=== PATIENT | male | born 1955 | race Caucasian/White ===

== ENCOUNTER 2017-01-14 15:14 | Inpatient (IN) | payer OTHER, MEDICARE ==
[~2017-01-14] VITALS: Ht 175.3 cm; Wt 71.2 kg
[~2017-01-14 15:14] MED LIST: ALDACTONE100 MG PO; CAPOTEN25 MG PO; CYCLOBENZAPRINE10 MG PO; ENULOSE 2020 GM/30 M PO; FUROSEMIDE40 MG PO; HUMALOG100 UNIT/2; HYDROXYZINE HCL10 MG PO; HYDROXYZINE HCL25 MG PO; LANTUS INS100 UNITS/ SC; LEVEMIR 10100 UNITS/ SC; LEVEMIR FLEX100 U/M1 SC; LEVEMIR100 U/ML SC; LEVEMIR100 UNIT/1 SC; METHADONE H5 MG/5 M2 PO; METHADONE H5 MG/5 ML PO; METHADONE10 MG PO; MULTIVITAMIN1 TAB PO; NEURONTIN100 M1 PO; NOVOLOG100 U/ML SC; SPIRONOLACTONE50 MG PO
--- NOTE | 2017-01-14 15:22 | NUR ---
TRIAGE: 61 Y/O MALE PRESENTS WITH MANY COMPLAINTS: RIGHT LOWER ABDOMINAL PAIN - RECENT ADMISSION TO [facility]; LAST BOWEL MOVEMENT UNKNOWN. PATIENT'S IRATE ABOUT RECENT CARE FROM [facility]. HAS DISCHARGE INSTRUCTIONS IN HAND. PATIENT'S CONTINUES WITH AGGRESSIVE LANGUAGE IN TRIAGE.
--- NOTE | 2017-01-14 15:31 | ED GI/GU/ABDOMINAL COMPLAINT ---
History of Present Illness General Chief Complaint: General Adult Stated Complaint: PT STOMACH PAIN Source: patient, family, old records Exam Limitations: no limitations Allergies Coded Allergies: acetaminophen (From TYLENOL-CODEINE) (NAUSEA 01/14/17) codeine (From TYLENOL-CODEINE) (NAUSEA 01/14/17) Triage Note: TRIAGE: 61 Y/O MALE PRESENTS WITH MANY COMPLAINTS: RIGHT LOWER ABDOMINAL PAIN - RECENT ADMISSION TO [facility]; LAST BOWEL MOVEMENT UNKNOWN. PATIENT'S IRATE ABOUT RECENT CARE FROM [facility]. HAS DISCHARGE INSTRUCTIONS IN HAND. PATIENT'S CONTINUES WITH AGGRESSIVE LANGUAGE IN TRIAGE. Triage Nurses Notes Reviewed? yes Onset: Gradual Duration: day(s): (4), constant Timing: recent history Quality/Severity: aching, BLOATING Severity Numbers: 7 Location: generalized abdomen, right lower quadrant Radiation: no radiation Activities at Onset: none No Modifying Factors: none Associated Symptoms: LIGHTHEADEDNESS HPI: 61-year-old male with history of cirrhosis hepatitis C diabetes which is followed by an glass silverer and liver specialist presents to ER with his complaining of persistent generalized abdominal distention right lower quadrant aching bloating pain and no normal bowel movements and lightheadedness in the past 4 days. He was recently admitted to [facility] in [place] for hyperkalemia earlier this month and return last week due to similar complaints. The patient states that they found nothing wrong with him and sent him home yesterday he's been using magnesium citrate without improvement he states he is only having small pellet-like bowel movements no black or bloody stools no fever no chills no nausea no vomiting no back pain and sciatica anything specifically for pain. His abdominal surgeries only significant for hernia repair. No dizziness no chest pain or shortness of breath (SALVADOR MOYA) Vital Signs & Intake/Output Vital Signs & Intake/Output Vital Signs Date Time Temp Pulse Resp B/P B/P Pulse O2 O2 Flow FiO2 Mean Ox Delivery Rate 01/16 0617 97.9 59 20 152/80 99 01/15 2241 98.4 66 20 140/70 99 Room Air 01/15 1449 97.4 69 18 140/66 99 01/15 1425 Room Air 01/15 1001 65 118/72 ED Intake and Output 01/16 0000 01/15 1200 Intake Total 925 250 Output Total 1045 800 Balance -120 -550 Intake, IV 525 Intake, Oral 400 250 Number 2 2 Bowel Movements Output, Urine 1045 800 Patient 157 lb Weight Reconcile Medications Cyclobenzaprine HCl 10 MG TABLET 1 TAB PO BID PRN RLS (Reported) Doxazosin Mesylate 8 MG TABLET 1 TAB PO QPM PROSTATE (Reported) Fluticasone Propionate 50 MCG/ACTUATION SPRAY.SUSP 2 SPRAY NASB PRN ALLERGIES (Reported) Furosemide (Lasix) 20 MG TABLET 1 TAB PO QAM DIURETIC (Reported) Hydroxyzine HCl 10 MG TABLET 1 TAB PO Q8P PRN ITCHING (Reported) Insulin Detemir (Levemir) 100 UNIT/ML VIAL 14 UNITS SC BID DM (Reported) Insulin Lispro (Humalog) 100 UNIT/ML VIAL DM (Reported) Lactulose 10 GRAM/15 ML SOLUTION 30 ML PO TID LIVER CIRRHOSIS (Reported) Lisinopril 10 MG TABLET 1 TAB PO DAILY BP (Reported) Magnesium Oxide (Magnesium) 400 MG CAPSULE 1 CAP PO BID SUPPLEMENT (Reported) Methadone HCl 10 MG/ML ORAL.CONC 70 MG PO DAILY MENTAL HEALTH (Reported) Mirabegron (Myrbetriq) 50 MG TAB.ER.24H 1 TAB PO DAILY BLADDER (Reported) Nitrofurantoin Monohyd/M-Cryst (Nitrofurantoin Bethel-Mcr 100 MG) 100 MG CAPSULE 1 CAP PO DAILY ANTIBIOTIC (Reported) Psyllium Husk (Metamucil) (Unknown Strength) CAPSULE (Unknown Dose) PO BID GI (Reported) Sennosides/Docusate Sodium (Senokot-S Tablet) 8.6 MG-50 MG TABLET 1 TAB PO TID GI (Reported) Spironolactone 100 MG TABLET 1 TAB PO BID BP (Reported) Trazodone HCl 100 MG TABLET 1 TAB PO QPM SLEEP (Reported) (HANNAH COX,IMGE) Past History Travel History Traveled to [place] past 21 day No Medical History Any Pertinent Medical History? see below for history Neurological: restless leg syndrome EENT: NONE Cardiovascular: hypertension, PVD Respiratory: NONE Gastrointestinal: NONE Hepatic: cirrhosis, hepatitis C Renal: NONE Musculoskeletal: NONE Psychiatric: NONE Endocrine: diabetes Surgical History Surgical History: hernia repair-inguinal, LUMBAR DISCECTOMY Psychosocial History Who do you live with Spouse What is your primary language Telugu Tobacco Use: Current Daily Use Daily Tobacco Use Amount/Type: => 5 Cigarettes daily ETOH Use: denies use Illicit Drug Use: denies illicit drug use Family History Hx Contributory? No (SALVADOR MOYA) Review of Systems Review of Systems Constitutional: Reports: see HPI. All Other Systems: Reviewed and Negative Comments Review of systems: See HPI, All other systems negative. Constitutional, no chills no fever, no malaise HEENT: No visual changes no sore throat no congestion, Cardiovascular: No chest pain , no palpitation Skin: no rashes, no change in skin Respiratory: No dyspnea no cough no sputum no hemoptysis GI: No nausea no vomiting, no diarrhea, no bloating/constipation : No dysuria No hematuria, no frequency, Muscle skeletal: No joint pain, no joint swelling, no back pain, no neck pain, Neurologic: no headache Psych: No stress no depression,. Heme/endocrine: No bruising no bleeding Immunology: No lymphadenopathy (SALVADOR MOYA) Physical Exam Physical Exam General Appearance: well developed/nourished, no apparent distress, alert, awake Gastrointestinal: normal bowel sounds, soft Comments: Well-developed well-nourished person in no acute distress HEENT: Normal EENT exam; PERRL, EOMI,. HEAD is atraumatic. moist mucous membranes. Neck: Supple, normal range of motion Back: Nontender, no CVA tenderness. Full range of motion Cardiovascular: Regular rate and rhythms no murmurs rubs or gallops, normal JVP Respiratory: No respiratory distress. Patient speaking in full complete sentences. Breath sounds clear to auscultation bilaterally: NO W/R/R Abdomen: Soft, nontender distended, no appreciable organomegaly. Normal bowel sounds. No rebound/guarding, No appreciable enlargement of the abdominal aorta, No ascites. Rectal: Nontender. No impaction Heme negative stool. No mass/hemorrhoid, no fissure. Extremity: No edema, full range of motion of extremities Neuro: Alert oriented x3, motor sensory normal,There were no obvious focal neurologic abnormalities. Skin: No appreciable rash on exposed skin, skin is warm and dry. Psych: Mood and affect is normal, memory and judgment is normal. Core Measures ACS in differential dx? No Severe Sepsis Present: No Septic Shock Present: No (SALVADOR MOYA) Progress Differential Diagnosis: AAA, appendicitis, biliary colic, bowel obstruction, colon cancer, cholecystitis, diverticulitis, hepatitis, hernia, ischemic bowel, inflamm bowel dis, pancreatitis, peptic ulcer, PUD/GERD, perforated viscous, pyelonephritis, SBO, MALIGNANCY, CIRRHOSIS, SBP Diagnostic Imaging: Viewed by Me: CT Scan. Discussed w/RAD: CT Scan. Radiology Impression: PATIENT: BELA GR PRESENT AGE: 61 PATIENT ACCOUNT NO: [id number] : 53 LOCATION: [facility] ORDERING PHYSICIAN: SALVADOR MONDRAGON SERVICE DATE: 01/14/17 EXAM TYPE: CAT - CT ABD & PELVIS W/O IV CONTRAS EXAMINATION: CT ABDOMEN AND PELVIS WITHOUT CONTRAST CLINICAL INFORMATION: Constipation and right lower quadrant pain. COMPARISON: None TECHNIQUE: Multidetector volumetric imaging was performed from the superior aspect of the liver through the pubic symphysis. Sagittal and coronal reformatted images were obtained on the technologist's workstation. DLP: 2 a 2.57 mGy-cm FINDINGS: LUNG BASES: There is mild left base atelectasis versus infiltrate with air bronchograms, and very mild medial right base linear atelectasis is seen. A small right pleural effusion is seen LIVER, GALLBLADDER, AND BILIARY TREE: The liver is normal in size, shape, and attenuation. No focal hepatic lesion or biliary ductal dilatation is present. There is mild free fluid deep to the left hepatic lobe. There are multiple layering gallstones, without gallbladder wall thickening or obvious pericholecystic inflammatory change. PANCREAS: Unremarkable. SPLEEN: There is splenomegaly, with a longitudinal span in coronal plane of 15.6 cm (602:75) ADRENAL GLANDS: Unremarkable. KIDNEYS AND URETERS: The kidneys are normal in size, shape, and attenuation. No hydronephrosis, hydroureter, or calculi seen. No perinephric stranding. BLADDER: Unremarkable. GASTROINTESTINAL TRACT: There is marked constipation, with copious gas and stool present within the colon. There is no pathologic dilatation of small bowel loops. The vermiform appendix is faintly seen and appears normal, without appendicitis (3:391). There is mild free fluid in the mid pelvis interposed between the small bowel loops and the anterior bladder wall. ABDOMINAL WALL: There is subcutaneous fat stranding in the anterior abdominal wall bilaterally (2:59), suggesting possible edematous change or injection hematomas. LYMPH NODES: There is a mildly enlarged para-aortic lymph node with short axis diameter of 1.3 cm (2:45). There are further shotty, nonpathologically enlarged para-aortic, bilateral iliac and inguinal lymph nodes. VASCULAR: There is moderate aortoiliac atherosclerotic change. No abdominal aortic aneurysm is seen. PELVIC VISCERA: The prostate and seminal vesicles are unremarkable. There are vas deferens calcifications, which can be associated with diabetes mellitus. OSSEOUS STRUCTURES: There is marked degenerative disc disease with vacuum phenomenon at L5-S1. No acute or aggressive osseous abnormality is seen. IMPRESSION: 1. There is marked constipation. No teodoro bowel obstruction is seen. There is no appendicitis or diverticulitis. No free intraperitoneal air or abscess is seen. 2. There is cholelithiasis, without CT finding to suggest cholecystitis. 3. There is mild free fluid in the lower pelvis and upper abdomen. 4. A small right pleural effusion is seen, and there is mild medial right base linear atelectasis. There is mild left base atelectasis versus infiltrate, with air bronchograms. 5. There is splenomegaly. 6. There is degenerative disc disease at L5-S1. DICTATED BY: LEE ANN MENA MD DATE/TIME DICTATED:01/14/171633 DIRECTOR HEMATOLOGY:AMILCAR DATE/TIME TRANSCRIBED:01/14/171633 CONFIDENTIAL, DO NOT COPY WITHOUT APPROPRIATE AUTHORIZATION. <Electronically signed in Other Vendor System> SIGNED BY: LEE ANN MENA MD 01/14/17 7522 Initial ED EKG: normal intervals, normal p-waves, normal QRS complex, normal sinus rhythm (70) Prior EKG: unchanged (KIAH MONDRAGON,SALVADOR) Plan of Care: Orders Procedure Date/time Status HEPATIC FUNCTION PANEL 01/16 06 Complete CBC WITHOUT DIFFERENTIAL 01/16 06 Active BASIC ELECTROLYTES PLUS BUN&CR 01/16 06 Complete RT: Evaluation 01/15 1435 Active MAGNESIUM 01/15 0703 Complete THERAPIST ORDERS 01/15 UNK Complete Lab Add-on Test 01/15 UNK Active MISSING MEDICATION FORM 01/15 UNK Active Current Medications Sig/Quinton Start time Last Medication Dose Stop Time Status Admin Magnesium Oxide 400 MG DAILY 01/16 1000 AC (Mag-Ox) Doxazosin Mesylate 8 MG QPM 01/15 2200 AC 01/15 (Cardura) 2222 Docusate Sodium 100 MG DAILY 01/15 1000 AC (Colace) Furosemide 20 MG QAM 01/15 1000 AC 01/15 (Lasix) 1002 Lactulose 10 GM TID 01/15 1000 AC (Enulose 20GM/30ML) Lisinopril 10 MG DAILY 01/15 1000 AC 01/15 (Prinivil) 1001 Magnesium Oxide 400 MG BID 01/15 1000 AC 01/15 (Mag-Ox) 2222 Mirabegron 50 MG DAILY 01/15 1000 AC 01/15 (Myrbetriq) 1002 Polyethylene Glycol 17 GM DAILY 01/15 1000 AC (Miralax) Senna/Docusate Sodium 1 TAB TID 01/15 1000 AC (Senokot S) Spironolactone 100 MG BID 01/15 1000 AC 01/15 (Aldactone) 2223 Insulin Aspart 0 TIDAC 01/15 0800 AC (NovoLOG) Cyclobenzaprine HCl 10 MG BID PRN 01/14 2215 AC (Flexeril 10MG Tab) Hydroxyzine HCl 10 MG DAILY NEEDED PRN 01/14 2215 AC (Atarax) Trazodone HCl 100 MG QPM 01/14 2215 AC 01/15 (Desyrel) 2222 Insulin Detemir 14 UNITS BID 01/14 2203 AC 01/14 (Levemir) 2323 Laboratory Tests 01/16/17 0710: Anion Gap 8, Estimated GFR > 60, BUN/Creatinine Ratio 15.0, Total Bilirubin 0.7, Direct Bilirubin 0.4, AST 26, ALT 40, Alkaline Phosphatase 62, Total Protein 6.8 , Albumin 3.4 L, CBC w Diff Pending, WBC Pending, RBC Pending, Hgb Pending, Hct Pending, MCV Pending, MCH Pending, RDW Pending, Plt Count Pending, MPV Pending, PUBS MCHC Pending Labs ordered old records reviewed patient's white blood cell count is chronically low however hemoglobin and platelet count today is new. Discussed with patient need all his results to date pending CAT scan Patient and his have no known history of anemia thrombocytopenia leukopenia patient denies dizziness lightheadedness shortness of breath guaiac is negative case was discussed with Dr. Brewer discussed with him at leave his CAT scan aggressive lab work sodium is baseline CASE D/W DR BREWER AGREES WITH PLAN D/W DR LEVY WILL PLACE IN OBS (SALVADOR MOYA) Departure Departure Time of Disposition: 1853 Disposition: HOME OR SELF CARE Clinical Impression Primary Impression: Symptomatic anemia Secondary Impressions: Abdominal pain, Cirrhosis, Constipation, Pleural effusion , Splenomegaly, Thrombocytopenia Observation Note Spoke With: DA LEVY MD Physician Advisor Notified: GILBERTO DUARTE MD Patient In: Non-ED OBS Care Area Rationale for Observation: My rational for observation is as follows [heme consult, trend labs, transfuse 2 units, premature discharge would be medically harmful, pt is orthostatic, no documented history of anemia in the past. (SALVADOR MOYA) PA/LEAF SIZE PICKER Co-Sign Statement Statement: ED Attending supervision documentation- [] I saw and evaluated the patient. I have also reviewed all the pertinent lab results and diagnostic results. I agree with the findings and the plan of care as documented in the PA's/LEAF SIZE PICKER's documentation. [X] I have reviewed the ED Record and agree with the PA's/LEAF SIZE PICKER's documentation. [] Additions or exceptions (if any) to the PAs/LEAF SIZE PICKER's note and plan are summarized below: [] (JUSTINE COX,MATTHEW Beth) Departure Condition: Stable Referrals: DEMARCO COX,MICHELLE Sewell (PCP/Family) Departure Forms: Customer Survey General Discharge Information (BERTHA YOUNG MD) Addendum Addendum I went into this note by error. Bertha Young MD PGY-1 Resident (BERTHA YOUNG MD) Addendum I went into this note by error. Bertha Young MD PGY-1 Resident (BERTHA YOUNG MD) Physician Advisor Notified: GILBERTO DUARTE MD Patient In: Non-ED OBS Care Area Rationale for Observation: My rational for observation is as follows [heme consult, trend labs, transfuse 2 units, premature discharge would be medically harmful, pt is orthostatic, no documented history of anemia in the past. (SALVADOR MOYA) PA/LEAF SIZE PICKER Co-Sign Statement Statement: ED Attending supervision documentation- [] I saw and evaluated the patient. I have also reviewed all the pertinent lab results and diagnostic results. I agree with the findings and the plan of care as documented in the PA's/LEAF SIZE PICKER's documentation. [X] I have reviewed the ED Record and agree with the PA's/LEAF SIZE PICKER's documentation. [] Additions or exceptions (if any) to the PAs/LEAF SIZE PICKER's note and plan are summarized below: [] (JUSTINE COX,MATTHEW Beth) Departure Clinical Impression Primary Impression: Symptomatic anemia Secondary Impressions: Abdominal pain, Constipation (HANNAH COX,IMGE)
--- NOTE | 2017-01-14 15:32 | NUR ---
AMBULATORY TO ROOM 3, CHANGED INTO [facility] FORTUNE AT BEDSIDE FOR EVAL
[2017-01-14 16:25] LABS: ABSOLUTE BASOPHIL COUNT 0 /CUMM (0.0-0.2); ABSOLUTE EOSINOPHIL COUNT 0.1 /CUMM (0.0-0.7); ABSOLUTE GRANULOCYTE CT 3.7 /CUMM (1.4-6.5); ABSOLUTE LYMPH COUNT 0.4 /CUMM (1.2-3.4); ABSOLUTE MONOCYTE COUNT 0.4 /CUMM (0.10-0.60); BASOPHIL % 0.2 % (0.0-2.0); EOSINOPHIL % 1.6 % (0-5); GRANULOCYTE % 81.1 % (42.2-75.2); HEMATOCRIT 23.6 % (42-52); MEAN CORPUSCULAR HGB 25.3 PG (27.0-31.0); MEAN CORPUSCULAR HGB CONC 32.5 G/DL (33.0-37.0); MEAN CORPUSCULAR VOLUME 77.7 FL (80.0-94.0); MEAN PLATELET VOLUME 7.9 FL (7.4-10.4); PLATELET COUNT 98 /CUMM (130-400); RBC DISTRIBUTION WIDTH 15.7 % (11.5-14.5); RED BLOOD CELL CT 3.04 /CUMM (4.70-6.10); WHITE BLOOD CELL COUNT 4.5 /CUMM (4.8-10.8)
--- NOTE | 2017-01-14 16:25 | NUR ---
TO CT ON STRETCHER, RETURNS AT THIS TIME.
--- NOTE | 2017-01-14 16:59 | CT SCAN REPORT ---
EXAMINATION: CT ABDOMEN AND PELVIS WITHOUT CONTRAST CLINICAL INFORMATION: Constipation and right lower quadrant pain. COMPARISON: None TECHNIQUE: Multidetector volumetric imaging was performed from the superior aspect of the liver through the pubic symphysis. Sagittal and coronal reformatted images were obtained on the technologist's workstation. DLP: 2 a 2.57 mGy-cm FINDINGS: LUNG BASES: There is mild left base atelectasis versus infiltrate with air bronchograms, and very mild medial right base linear atelectasis is seen. A small right pleural effusion is seen LIVER, GALLBLADDER, AND BILIARY TREE: The liver is normal in size, shape, and attenuation. No focal hepatic lesion or biliary ductal dilatation is present. There is mild free fluid deep to the left hepatic lobe. There are multiple layering gallstones, without gallbladder wall thickening or obvious pericholecystic inflammatory change. PANCREAS: Unremarkable. SPLEEN: There is splenomegaly, with a longitudinal span in coronal plane of 15.6 cm (602:75) ADRENAL GLANDS: Unremarkable. KIDNEYS AND URETERS: The kidneys are normal in size, shape, and attenuation. No hydronephrosis, hydroureter, or calculi seen. No perinephric stranding. BLADDER: Unremarkable. GASTROINTESTINAL TRACT: There is marked constipation, with copious gas and stool present within the colon. There is no pathologic dilatation of small bowel loops. The vermiform appendix is faintly seen and appears normal, without appendicitis (3:391). There is mild free fluid in the mid pelvis interposed between the small bowel loops and the anterior bladder wall. ABDOMINAL WALL: There is subcutaneous fat stranding in the anterior abdominal wall bilaterally (2:59), suggesting possible edematous change or injection hematomas. LYMPH NODES: There is a mildly enlarged para-aortic lymph node with short axis diameter of 1.3 cm (2:45). There are further shotty, nonpathologically enlarged para-aortic, bilateral iliac and inguinal lymph nodes. VASCULAR: There is moderate aortoiliac atherosclerotic change. No abdominal aortic aneurysm is seen. PELVIC VISCERA: The prostate and seminal vesicles are unremarkable. There are vas deferens calcifications, which can be associated with diabetes mellitus. OSSEOUS STRUCTURES: There is marked degenerative disc disease with vacuum phenomenon at L5-S1. No acute or aggressive osseous abnormality is seen. IMPRESSION: 1. There is marked constipation. No teodoro bowel obstruction is seen. There is no appendicitis or diverticulitis. No free intraperitoneal air or abscess is seen. 2. There is cholelithiasis, without CT finding to suggest cholecystitis. 3. There is mild free fluid in the lower pelvis and upper abdomen. 4. A small right pleural effusion is seen, and there is mild medial right base linear atelectasis. There is mild left base atelectasis versus infiltrate, with air bronchograms. 5. There is splenomegaly. 6. There is degenerative disc disease at L5-S1.
--- NOTE | 2017-01-14 17:09 | NUR ---
PA AT BEDSIDE TO DISCUSS RESULTS/PLAN
[2017-01-14] MEDS ORDERED: NITROFURANTOIN100 M6 PO (17:22)
[2017-01-14] MEDS ORDERED: LEVEMIR100 UNIT/1 SC (17:22)
[2017-01-14] MEDS ORDERED: HYDROXYZINE HCL10 M1 PO (17:23)
[2017-01-14] MEDS ORDERED: SPIRONOLACTONE100 M1 PO (17:23)
[2017-01-14] MEDS ORDERED: HUMALOG100 UNIT/2 SC (17:23)
[2017-01-14] MEDS ORDERED: DOXAZOSIN MESYLA8 M1 PO (17:23)
[2017-01-14] MEDS ORDERED: LACTULOSE10 GM/152 PO (17:25)
[2017-01-14] MEDS ORDERED: TRAZODONE HCL100 M1 PO (17:25)
[2017-01-14] MEDS ORDERED: LISINOPRIL10 M1 PO (17:27)
[2017-01-14] MEDS ORDERED: FLUTICASONE PRO16 GM NASB (17:27)
[2017-01-14] MEDS ORDERED: METHADONE10 MG/1 M2 PO (17:27)
[2017-01-14] MEDS ORDERED: FUROSEMIDE40 M1 PO (17:27)
[2017-01-14] MEDS ORDERED: MYRBETRIQ50 M1 PO (17:28)
[2017-01-14 18:08] LABS: PT 12.9 SEC (9.4-12.5); PTT 31 SEC (25-37)
--- NOTE | 2017-01-14 18:23 | NUR ---
LAB REQUESTING ABORH CONFIRMATION TUBE ROSEY AWARE
--- NOTE | 2017-01-14 18:23 | NUR ---
URINE TRIO SENT.
[2017-01-14] MEDS ORDERED: CYCLOBENZAPRINE10 M1 PO (19:01)
[2017-01-14] MEDS ORDERED: METAMUCIL0.4 GM PO (19:02)
[2017-01-14] MEDS ORDERED: MAGNESIUM400 M1 PO (19:03)
[2017-01-14] MEDS ORDERED: LASIX20 M1 PO (19:03)
[2017-01-14] MEDS ORDERED: SENOKOT-S TABL1 EACH PO (19:04)
--- NOTE | 2017-01-14 20:09 | History & Physical ---
[facility] [place] 2009: General Information and HPI MD Statement: I have seen and personally examined BELA CEDILLO and documented this H&P. The patient is a 61 year old M who presented with a patient stated chief complaint of constipation. Source of Information: patient, old records Exam Limitations: no limitations History of Present Illness: Mr. Cedillo is a 61 y/o M with PMHx of HCV cirrhosis, PVD and insulin- dependent T2DM who presents with constipation. In November of this year, patient presented to [facility] with constipation and right-sided abdominal distention and was subsequently hospitalized. He is unable to recall the details of the hospitalization but reports that an endoscopy and colonoscopy were performed which were unrevealing. He states that his symptoms have persisted since being discharged. For the past two weeks, his stools have been pellet-like and for the past six days, he has not had a bowel movement. He endorses abdominal and bloating but denies melena, hematemesis, bloody stool or jaundice. Patient has weaknes and decreased exercise tolerance at baseline since his spinal fusion surgery in April 2016 but denies chest pain, shortness of breath , lightheadedness, or palpitations. Patient reports that he was diagnosed with HCV in 1997, which he attributes to IV drug use. The last time he used illicit drugs was 35 years ago. He never received treatment for HCV. Allergies/Medications Allergies: Coded Allergies: acetaminophen (From TYLENOL-CODEINE) (NAUSEA 01/14/17) codeine (From TYLENOL-CODEINE) (NAUSEA 01/14/17) Home Med list Cyclobenzaprine HCl 10 MG TABLET 1 TAB PO BID PRN RLS (Reported) Doxazosin Mesylate 8 MG TABLET 1 TAB PO QPM PROSTATE (Reported) Fluticasone Propionate 50 MCG/ACTUATION SPRAY.SUSP 2 SPRAY NASB PRN ALLERGIES (Reported) Furosemide (Lasix) 20 MG TABLET 1 TAB PO QAM DIURETIC (Reported) Hydroxyzine HCl 10 MG TABLET 1 TAB PO PRN ITCHING (Reported) Insulin Detemir (Levemir) 100 UNIT/ML VIAL 14 UNITS SC BID DM (Reported) Insulin Lispro (Humalog) 100 UNIT/ML VIAL DM (Reported) Lactulose 10 GRAM/15 ML SOLUTION 30 ML PO TID GI (Reported) Lisinopril 10 MG TABLET 1 TAB PO DAILY BP (Reported) Magnesium Oxide (Magnesium) 400 MG CAPSULE 1 CAP PO BID SUPPLEMENT (Reported) Methadone HCl 10 MG/ML ORAL.CONC 70 MG PO DAILY MENTAL HEALTH (Reported) Mirabegron (Myrbetriq) 50 MG TAB.ER.24H 1 TAB PO DAILY BLADDER (Reported) Nitrofurantoin Monohyd/M-Cryst (Nitrofurantoin Johnston-Mcr 100 MG) 100 MG CAPSULE 1 CAP PO DAILY ANTIBIOTIC (Reported) Psyllium Husk (Metamucil) (Unknown Strength) CAPSULE (Unknown Dose) PO BID GI (Reported) Sennosides/Docusate Sodium (Senokot-S Tablet) 8.6 MG-50 MG TABLET 1 TAB PO TID GI (Reported) Spironolactone 100 MG TABLET 1 TAB PO BID BP (Reported) Trazodone HCl 100 MG TABLET 1 TAB PO QPM SLEEP (Reported) Observation Initial Note - I have personally examined BELA CEDILLO on 01/14/17 at 2309. The disposition of BELA CEDILLO is uncertain at this time and before a determination can be made, he requires a period of observation for the following reasons [] Past History Travel History Traveled to [place] past 21 day No Medical History Neurological: restless leg syndrome EENT: NONE Cardiovascular: hypertension, PVD Respiratory: NONE Gastrointestinal: NONE Hepatic: cirrhosis, hepatitis C Renal: NONE Musculoskeletal: NONE Psychiatric: NONE Endocrine: diabetes Surgical History Surgical History: hernia repair-inguinal, LUMBAR DISCECTOMY Past Family/Social History Psychosocial History Where do you live? Home Who Do You Live With? spouse Services at Home: None Primary Language: Kuwaiti Smoking Status: Current Everyday Smoker (Smokes 1/2 PPD) ETOH Use: denies use Illicit Drug Use: denies illicit drug use (hx of IVDU - quit 35 years ago) Functional Ability ADLs Independent: dressing, eating, toileting, bathing. Ambulation: cane IADLs Independent: shopping, housework, finances, food prep, telephone, transportation , medication admin. Employment History Employment Disability Review of Systems Review of Systems Constitutional: Reports: weakness. EENTM: Reports: no symptoms. Exam & Diagnostic Data Last 24 Hrs of Vital Signs/I&O Vital Signs Date Time Temp Pulse Resp B/P B/P Pulse O2 O2 Flow FiO2 Mean Ox Delivery Rate 06/17 2137 97.3 74 20 148/84 97 Room Air 01/14 2001 96.3 73 18 150/77 100 Room Air 01/14 1758 96.9 67 18 178/92 99 01/14 1625 99 01/14 1519 98.1 80 18 123/74 97 Room Air Room Air Intake & Output 01/14 1600 01/14 0800 01/14 0000 Intake Total Output Total Balance Patient 71.214 kg Weight Weight Reported by Patient Measurement Method Physical Exam General Appearance Alert, Oriented X3, No Acute Distress Skin No Rashes Sepsis Skin Exam (color): Pale HEENT Atraumatic, Mucous Membr. moist/pink, Conjunctival Pallor Neck Supple Cardiovascular Regular Rate, Normal S1, Normal S2 Lungs Clear to Auscultation Abdomen Soft, No Tenderness, Positive Bowel Sounds Extremities No Clubbing, No Cyanosis, Bilateral Lower Extremities with 2+ Edema , Skin Changes on Bilateral Lower Extremiteis Consistent with Severe Chronic Venous Stasis Last 24 Hrs of Labs/Jeffy: Laboratory Tests 01/14/17 1846: Lactic Acid Cancelled 01/14/17 1818: Urine Opiates Screen < 100.00, Methadone Screen > 735 H, Barbiturate Screen < 60, Ur Phencyclidine Scrn < 6.00, Amphetamines Screen < 100, U Benzodiazepines Scrn < 85, Urine Cocaine Screen < 50, Urine Cannabis Screen < 5.00, Urine Color YEL, Urine Clarity CLEAR, Urine pH 6.0, Ur Specific Hobson 1.010, Urine Protein NEG, Urine Ketones NEG, Urine Nitrite NEG, Urine Bilirubin NEG, Urine Urobilinogen 0.2, Ur Leukocyte Esterase NEG, Ur Microscopic EXAM NOT REQUIRED, Urine Hemoglobin NEG, Urine Glucose NEG 01/14/17 1746: PT 12.9 H, INR 1.23 H, APTT 31 01/14/17 1606: Anion Gap 11, Estimated GFR > 60, BUN/Creatinine Ratio 12.7, Glucose 89, Lactic Acid 1.6, Calcium 9.1, Iron 19 L, TIBC 348, Ferritin 47.1, Total Bilirubin 0.7, AST 26, ALT 44, Alkaline Phosphatase 62, Total Protein 6.7, Albumin 3.5, Globulin 3.2, Albumin/Globulin Ratio 1.1, CBC w Diff NO MAN DIFF REQ, RBC 3.04 L, MCV 77.7 L, MCH 25.3 L, RDW 15.7 H, MPV 7.9, Gran % 81.1 H, Lymphocytes % 8.8 L, Monocytes % 8.3, Eosinophils % 1.6, Basophils % 0.2, Absolute Granulocytes 3.7, Absolute Lymphocytes 0.4 L, Absolute Monocytes 0.4, Absolute Eosinophils 0.1, Absolute Basophils 0, PUBS MCHC 32.5 L, Retic Count 3.52 H Diagnostic Data EKG Results Normal sinus rhythm HR 69 QTc [address] ABDOMEN/PELVIS: 1. There is marked constipation. No teodoro bowel obstruction is seen. There is no appendicitis or diverticulitis. No free intraperitoneal air or abscess is seen. 2. There is cholelithiasis, without CT finding to suggest cholecystitis. 3. There is mild free fluid in the lower pelvis and upper abdomen. 4. A small right pleural effusion is seen, and there is mild medial right base linear atelectasis. There is mild left base atelectasis versus infiltrate, with air bronchograms. 5. There is splenomegaly. 6. There is degenerative disc disease at L5-S1. Core Measures/Miscellaneous Acute Coronary Syndrome ACS Diagnosis: No Cerebrovascular Accident CVA/TIA Diagnosis: No Congestive Heart Failure CHF Diagnosis: No VTE (View Protocol) VTE Risk Factors: Acute medical illness, Age > 40, Smoking No [facility] VTE prophylaxis d/t: No contraindications No VTE Pharm Prophylaxis d/t: Platelets below ref range VTE Diagnosis: No VTE Type: NONE VTE Confirmed by (Test): NONE Sepsis (View Protocol) Severe Sepsis Present: No Septic Shock Septic Shock Present: No Miscellaneous Documentation Attending [facility] Primary Care Physician: MICHELLE PAL MD Patient sees these Specialists Public Works Technician Cain Dick MD Marine Fitter Tejas Miller MD Shot Fireman at [facility] Level of Patient Care: General Medicine SALVADOR KOHLI 01/14/17 2009: Resident Review Statement Resident Statement: examined this patient, discussed with post graduate internship, agreed with post graduate internship, reviewed images Other Findings: This is a 61 years old gentleman with past medical history of hypertension, peripheral vascular disease, liver cirrhosis with hepatitis C diagnosed since 1997, diabetes mellitus, restless leg syndrome status post cervical spinal fusion in March 2016 with swallowing problems postprocedure who is presenting with constipation. Patient is reporting that for the past 6 days have not been able to have a bowel movement and is experiencing abdominal bloating and sense of fullness. He was admitted at [place] in November for the same problem received enema and also had a colonoscopy which cleared for any mechanical obstruction. He has recently also had an upper endoscopy which was negative. Before the start of constipation he used to had bowel motion almost every day. He denies passing stools which had occurred more than usual or observing blood in stool. The patient denies any dizziness lightheadedness palpitation or lethargy. He has no chest pain palpitation or shortness of breath. He just has vague abdominal discomfort but denies any overt abdominal pain nausea or vomiting. He has no dysuria or change in urine frequency. Patient gets his care primarily at [facility] he follows with a apricot washer and an management recruiter. It baseline he uses a cane and reports that he is independent with his ADLs and I ADLs to he has been slower more than usual. Recently the patient has noted to be bruising more than usual Vital signs on arrival febrile 98.1 heart rate of 80 respiration of 18 blood pressure 123/74 saturating 97% on room air Physical examination: Patient appears more older than his age, wasted, multiple bruises on bilateral upper limbs and on the abdominal wall, not in any acute distress seated comfortably on the bed very cooperative. HEENT: Dry mucous membranes no distended neck vessels healed scar on the back of the neck from the neck and vertebral fusion Abdomen: Globally distended, no tenderness, slightly increased spleen palpable below the right costal margin, no hepatomegaly, fluid thrill is negative, normal bowel sounds. Extremities: Venous stasis changes, +1 pitting edema, weak peripheral pulses, no cyanosis, no clubbing Chest: Clear lungs bilaterally Heart: RRR, normal S1-S2 there is a systolic murmur more pronounced in the aortic area Labs: H&H H&H 7.7 and 23.7, WBC 4.5, platelets 98, MCV 77.7, Low retic 3.5 to, reticulocyte production index 0.99, INR 1.23, sodium 129, methadone 735 CT abdomen: Shows evidence of constipation and splenomegaly EKG: Normal sinus resume regular normal axis no ST-T wave changes QTC 459 Assessment and plan 61 years old gentleman with extensive past medical history hypertension peripheral vascular disease liver cirrhosis, hepatitis C, diabetes mellitus who is presenting with one-week history of constipation with previous admission for constipation at [facility] and for workup negative for malignancy or mechanical obstruction. On presentation patient found to be anemic hemoglobin of 7.7 and hematocrit of 23.6 with hypocellularity of all blood cell lines. Patient denies any anemia associated symptoms. Chronic anemia Constipation Liver cirrhosis Diabetes mellitus Hypertension Borderline hyponatremia Admit the patient to general medicine floor Patient received 1 unit of PRBC in the ER, recheck CBC a.m. Ground mechanical diet Further workup for anemia initial shows low iron, normal TIBC and ferritin will check folate and B12 Dulcolax suppository For bowel regimen with senna and MiraLAX and Colace Please get medical records from [facility] for previous treatments Patient is full code ALPS the 4 DVT prophylaxis Pain pathway MILDRED [facility], [facility] 01/14/17 3163: Attending MD Review Statement Attending Statement Attending MD Statement: examined this patient, discuss w/resident/PA/SOLDERING TECHNICIAN, agreed w/resident/PA/SOLDERING TECHNICIAN
--- NOTE | 2017-01-14 20:35 | NUR ---
PRBCS INFUSING WITH NO SIGNS OF REACTION. HOUSE STAFF EVAL IN PROGRESS.
--- NOTE | 2017-01-14 20:49 | NUR ---
Emergency Dept UC Admit Note: To be admitted to [facility] by DR LEVY with SYMPTOMATIC ANEMIA as the diagnosis, to [facility]OBSERVATION location. Nursing Final Installer Inspector and admitting notified 01/14/17 at 1927 PT WILL GO TO ROOM 203-1
--- NOTE | 2017-01-14 21:31 | NUR ---
PT EATING BOX LUNCH. REPORT CALLED TO ASAD ON 2NB.
--- NOTE | 2017-01-14 21:42 | NUR ---
TRANSPORT HERE FOR PT
--- NOTE | 2017-01-14 23:15 | History & Physical ---
HANNAH COX,[facility] [place] 01/14/17 2314: General Information and HPI MD Statement: I have seen and personally examined BELA CEDILLO and documented this H&P. The patient is a 61 year old M who presented with a patient stated chief complaint of constipation. Source of Information: patient, old records Exam Limitations: no limitations History of Present Illness: Mr. Cedillo is a 61 y/o M with PMHx of HCV cirrhosis, PVD and insulin- dependent T2DM who presents with constipation. In November of this year, patient presented to [facility] with constipation and right-sided abdominal distention and was subsequently admitted during which time colonoscopy was performed which was negative and patient was given enema with some symptomatic relief. He states that his symptoms have persisted since being discharged. For the past two weeks, his stools have been pellet-like and for the past six days, he has not had a bowel movement. He endorses abdominal and bloating but denies melena, hematemesis, bloody stool or jaundice. Last EGD, one year prior to current presentation, was normal. Patient has dyspnea on exertion and decreased exercise tolerance since his spinal fusion surgery in April 2016 which feels is unchanged from baseline. He denies chest pain, shortness of breath, lightheadedness, or palpitations. He has been experiencing dysphagia as well since that surgery and is currently on a ground diet with thin liquids. Patient reports that he was diagnosed with HCV in 1997, which he attributes to IV drug use. The last time he used illicit drugs was 35 years ago. He never received treatment for HCV. He is currently on a methadone maintenance program and takes stool softeners. Allergies/Medications Allergies: Coded Allergies: acetaminophen (From TYLENOL-CODEINE) (NAUSEA 01/14/17) codeine (From TYLENOL-CODEINE) (NAUSEA 01/14/17) Home Med list Cyclobenzaprine HCl 10 MG TABLET 1 TAB PO BID PRN RLS (Reported) Doxazosin Mesylate 8 MG TABLET 1 TAB PO QPM PROSTATE (Reported) Fluticasone Propionate 50 MCG/ACTUATION SPRAY.SUSP 2 SPRAY NASB PRN ALLERGIES (Reported) Furosemide (Lasix) 20 MG TABLET 1 TAB PO QAM DIURETIC (Reported) Hydroxyzine HCl 10 MG TABLET 1 TAB PO Q8P PRN ITCHING (Reported) Insulin Detemir (Levemir) 100 UNIT/ML VIAL 14 UNITS SC BID DM (Reported) Insulin Lispro (Humalog) 100 UNIT/ML VIAL DM (Reported) Lactulose 10 GRAM/15 ML SOLUTION 30 ML PO TID LIVER CIRRHOSIS (Reported) Lisinopril 10 MG TABLET 1 TAB PO DAILY BP (Reported) Magnesium Oxide (Magnesium) 400 MG CAPSULE 1 CAP PO BID SUPPLEMENT (Reported) Methadone HCl 10 MG/ML ORAL.CONC 70 MG PO DAILY MENTAL HEALTH (Reported) Mirabegron (Myrbetriq) 50 MG TAB.ER.24H 1 TAB PO DAILY BLADDER (Reported) Nitrofurantoin Monohyd/M-Cryst (Nitrofurantoin Day-Mcr 100 MG) 100 MG CAPSULE 1 CAP PO DAILY ANTIBIOTIC (Reported) Psyllium Husk (Metamucil) (Unknown Strength) CAPSULE (Unknown Dose) PO BID GI (Reported) Sennosides/Docusate Sodium (Senokot-S Tablet) 8.6 MG-50 MG TABLET 1 TAB PO TID GI (Reported) Spironolactone 100 MG TABLET 1 TAB PO BID BP (Reported) Trazodone HCl 100 MG TABLET 1 TAB PO QPM SLEEP (Reported) Past History Travel History Traveled to [place] past 21 day No Medical History Blood Transfusion Hx: Yes Neurological: restless leg syndrome EENT: NONE Cardiovascular: hypertension, PVD Respiratory: NONE Gastrointestinal: NONE Hepatic: cirrhosis, hepatitis C Renal: benign prost hyperplasia Musculoskeletal: degen joint disease Psychiatric: chronic pain disorder, opioid dependence Endocrine: diabetes Blood Disorders: anemia Isolation History: Standard Surgical History Surgical History: hernia repair x2, lumbar discectomy, cervical spinal fusion, prostate laser surgery Past Family/Social History Family History Relations & Conditions if any MOTHER, ; Cause: Cancer. FH: cancer Peripheral vascular disease FATHER, ; Cause: Heart attack. Psychosocial History Where do you live? Home Who Do You Live With? spouse Services at Home: None Primary Language: Nigerien Smoking Status: Current Everyday Smoker (Smokes 1/2 PPD) ETOH Use: denies use Illicit Drug Use: denies illicit drug use (hx of IVDU - quit 35 years ago) Functional Ability ADLs Independent: dressing, eating, toileting, bathing. Ambulation: cane IADLs Independent: shopping, housework, finances, food prep, telephone, transportation , medication admin. Review of Systems Review of Systems Constitutional: Reports: no symptoms. EENTM: Reports: no symptoms. Cardiovascular: Reports: no symptoms. Denies: chest pain, palpitations. Respiratory: Reports: no symptoms, short of breath (unchanged from baseline). GI: Reports: abdominal pain, bloating, constipation, changes in stool. Denies: melena, bloody stool. Genitourinary: Reports: no symptoms. Denies: dysuria. Musculoskeletal: Reports: no symptoms. Skin: Reports: no symptoms. Denies: jaundice. Neurological/Psychological: Reports: no symptoms, paresthesia (bilateral arms, chronic). Denies: numbness, tingling. Hematologic/Endocrine: Reports: bruising. Immunologic/Allergic: Reports: no symptoms. All Other Systems: Reviewed and Negative Exam & Diagnostic Data Last 24 Hrs of Vital Signs/I&O Vital Signs Date Time Temp Pulse Resp B/P B/P Pulse O2 O2 Flow FiO2 Mean Ox Delivery Rate 01/15 0000 95 Room Air 01/14 2328 98.1 66 18 125/68 95 Room Air 01/14 2137 97.3 74 20 148/84 97 Room Air 01/14 2001 96.3 73 18 150/77 100 Room Air 01/14 1758 96.9 67 18 178/92 99 01/14 1625 99 01/14 1519 98.1 80 18 123/74 97 Room Air Room Air Intake & Output 01/15 0800 01/15 0000 01/14 1600 Intake Total 112 Output Total 800 Balance -688 Intake, Blood 112 Product Output, Urine 800 Patient 71.214 kg 71.214 kg Weight Weight Reported by Patient Measurement Method Physical Exam General Appearance Alert, Oriented X3, No Acute Distress, Appears Older than Stated Age Skin Scattered Ecchymotic Patches on Bilateral Upper Extremities and Lower Abdomen (From Heparin Injections) Sepsis Skin Exam (color): Pale HEENT Atraumatic, Dry Mucous Membranes Neck Supple, Well-Healed Surgical Scar on Posterior Neck Cardiovascular Regular Rate, Normal S1, Normal S2, Systolic Ejection Murmur Lungs Clear to Auscultation Abdomen Soft, No Tenderness, Distended, Fluid Thrill Negative Extremities No Clubbing, No Cyanosis, Bilateral Lower Extremities with 1+ Pitting Edema, Skin Changes on Bilateral Lower Extremities Consistent with Severe Chronic Venous Stasis Rectal Guiac Negative Last 24 Hrs of Labs/Jeffy: Laboratory Tests 01/14/17 1846: Lactic Acid Cancelled 01/14/17 1818: Urine Opiates Screen < 100.00, Methadone Screen > 735 H, Barbiturate Screen < 60, Ur Phencyclidine Scrn < 6.00, Amphetamines Screen < 100, U Benzodiazepines Scrn < 85, Urine Cocaine Screen < 50, Urine Cannabis Screen < 5.00, Urine Color YEL, Urine Clarity CLEAR, Urine pH 6.0, Ur Specific Culver 1.010, Urine Protein NEG, Urine Ketones NEG, Urine Nitrite NEG, Urine Bilirubin NEG, Urine Urobilinogen 0.2, Ur Leukocyte Esterase NEG, Ur Microscopic EXAM NOT REQUIRED, Urine Hemoglobin NEG, Urine Glucose NEG 01/14/17 1746: PT 12.9 H, INR 1.23 H, APTT 31 01/14/17 1606: Anion Gap 11, Estimated GFR > 60, BUN/Creatinine Ratio 12.7, Glucose 89, Lactic Acid 1.6, Calcium 9.1, Iron 19 L, TIBC 348, Ferritin 47.1, Total Bilirubin 0.7, AST 26, ALT 44, Alkaline Phosphatase 62, Total Protein 6.7, Albumin 3.5, Globulin 3.2, Albumin/Globulin Ratio 1.1, CBC w Diff NO MAN DIFF REQ, RBC 3.04 L, MCV 77.7 L, MCH 25.3 L, RDW 15.7 H, MPV 7.9, Gran % 81.1 H, Lymphocytes % 8.8 L, Monocytes % 8.3, Eosinophils % 1.6, Basophils % 0.2, Absolute Granulocytes 3.7, Absolute Lymphocytes 0.4 L, Absolute Monocytes 0.4, Absolute Eosinophils 0.1, Absolute Basophils 0, PUBS MCHC 32.5 L, Retic Count 3.52 H Diagnostic Data EKG Results Normal sinus rhythm HR 69 [address]Tc [address] ABDOMEN/PELVIS: 1. There is marked constipation. No teodoro bowel obstruction is seen. There is no appendicitis or diverticulitis. No free intraperitoneal air or abscess is seen. 2. There is cholelithiasis, without CT finding to suggest cholecystitis. 3. There is mild free fluid in the lower pelvis and upper abdomen. 4. A small right pleural effusion is seen, and there is mild medial right base linear atelectasis. There is mild left base atelectasis versus infiltrate, with air bronchograms. 5. There is splenomegaly. 6. There is degenerative disc disease at L5-S1. Assessment/Plan Assessment: Mr. Cedillo is a 61 y/o M with PMHx of HCV cirrhosis, PVD and insulin- dependent T2DM who presents with constipation, found to be anemic with H/H of 7.7/23. #Acute on chronic microcytic anemia: Iron studies with low iron and normal TIBC and ferritin consistent with mixed iron deficiency anemia and anemia of chronic disease. RPI 0.99% suggesting inadequate bone marrow response, likely secondary to bone marrow suppression from HCV cirrhosis. No evidence of acute blood loss including hematemesis, melena or BRBPR. Recent colonoscopy at [facility] was negative. Last EGD, 1 year ago, was unrevealing. Positive orthostatics on admission, which later resolved, but no other symptoms associated with anemia including chest pain, palpitations or shortness of breath. * Place under observation in General Medicine. * Hematology consult placed. Appreciate their recs. * Transfuse 1 unit of pRBCs. * Check CBC in the AM and transfuse as needed to keep Hgb >7. * Guaiac all stools. * Check TSH, vitamin B12 and folic acid. * No need to repeat endoscopy/colonoscopy which had been performed approximately one month ago during recent hospitalization at [facility]. * Administer 1 L bolus of normal saline given orthostatic hypotension on admission. * Obtain records from [facility] regarding previous hospitalization. #Constipation: Of unclear etiology but possibly related to methadone use. CT Abdomen/Pelvis with marked constipation but no bowel obstruction. Recent workup at [facility] including colonoscopy negative. Takes psyllium and Senokot-S as outpatient. * Aggressive bowel regimen with scheduled Miralax, Senokot-S and Colace. * Dulcolax suppository administered. #HCV cirrhosis: No evidence of decompensated cirrhosis. * Continue kpfit-bn-anrfczlbx lactulose 10 mg PO TID. * ALPs for DVT PPx. No pharmacologic anticoagulation in the setting of thrombocytopenia. #Right pleural effusion: CT Abdomen/Pelvis with small right pleural effusion consistent with atelectasis vs. infiltrate. Patient is comfortable and satting well on room air and denies cough. * TRC and nebs. * Encourage incentive spirometry. #IDDM: On Levemir and lispro. * Continue dzvpe-ld-xzcrpangq Levemir 14 units SQ BID. * Accu-checks and low-dose sliding scale Novolog TIDAC. #HTN: * Continue copdb-uj-jehsihcil lisinopril 10 mg PO daily, spironolactone 100 mg PO BID and Lasix 20 mg PO QAM. #Opioid dependence: Maintained on methadone 70 mg PO daily. * Continue sjaia-lw-dcbuuquzo methadone after confirming dose. #BPH: * Continue aolbl-ob-tppxglahe doxazosin 8 mg PO QPM and mirabegron 50 mg PO daily. #Restless leg syndrome: * Continue uoiza-xy-tqghvkuia Flexeril 10 mg PO BID PRN. Diet: Consistent Carbohydrate 3 - Mechanical soft/ground and thin liquids Pain: Motrin 600 mg PO Q6H PRN for moderate pain (scale 4-6) Toradol 15 mg IV Q6H PRN for severe pain (scale 7-10) DVT PPx: ALPs CODE: FULL As Ranked By This Provider Problem List: 1. Constipation 2. Microcytic anemia 3. IDDM (insulin dependent diabetes mellitus) 4. HTN (hypertension) 5. BPH (benign prostatic hyperplasia) 6. Restless leg syndrome 7. Thrombocytopenia 8. Pleural effusion, right Observation Initial Note - I have personally examined BELA CEDILLO on 01/15/17 at 0118. The disposition of BELA CEDILLO is uncertain at this time and before a determination can be made, he requires a period of observation for the following reasons: anemia requiring blood transfusion. Core Measures/Miscellaneous Acute Coronary Syndrome ACS Diagnosis: No Cerebrovascular Accident CVA/TIA Diagnosis: No Congestive Heart Failure CHF Diagnosis: No VTE (View Protocol) VTE Risk Factors: Acute medical illness, Age > 40, Smoking No [facility] VTE prophylaxis d/t: No contraindications No VTE Pharm Prophylaxis d/t: Platelets below ref range VTE Diagnosis: No VTE Type: NONE VTE Confirmed by (Test): NONE Sepsis (View Protocol) Severe Sepsis Present: No Septic Shock Septic Shock Present: No Miscellaneous Documentation Attending Case Discussed With: [facility] Primary Care Physician: MICHELLE PAL MD Patient sees these Specialists Whistle Punk Cain Dick MD Cook Relief Tejas Miller MD Head Of Store Operations Иван Nicole MD Level of Patient Care: General Medicine SALVADOR KOHLI 01/14/17 7005: Resident Review Statement Resident Statement: examined this patient, discussed with web design intern, agreed with web design intern, reviewed images, amended to note Other Findings: This is a 61 years old gentleman with past medical history of hypertension, peripheral vascular disease, liver cirrhosis with hepatitis C diagnosed since 1997, diabetes mellitus, restless leg syndrome status post cervical spinal fusion in March 2016 with swallowing problems postprocedure who is presenting with constipation. Patient is reporting that for the past 6 days have not been able to have a bowel movement and is experiencing abdominal bloating and sense of fullness. He was admitted at [place] in November for the same problem received enema and also had a colonoscopy which cleared for any mechanical obstruction. He has recently also had an upper endoscopy which was negative. Before the start of constipation he used to had bowel motion almost every day. He denies passing stools which had occurred more than usual or observing blood in stool. The patient denies any dizziness lightheadedness palpitation or lethargy. He has no chest pain palpitation or shortness of breath. He just has vague abdominal discomfort but denies any overt abdominal pain nausea or vomiting. He has no dysuria or change in urine frequency. Patient gets his care primarily at [facility] he follows with a sewer tapper and an pearl digger. It baseline he uses a cane and reports that he is independent with his ADLs and I ADLs to he has been slower more than usual. Recently the patient has noted to be bruising more than usual Vital signs on arrival febrile 98.1 heart rate of 80 respiration of 18 blood pressure 123/74 saturating 97% on room air Physical examination: Patient appears more older than his age, wasted, multiple bruises on bilateral upper limbs and on the abdominal wall, not in any acute distress seated comfortably on the bed very cooperative. HEENT: Dry mucous membranes no distended neck vessels healed scar on the back of the neck from the neck and vertebral fusion Abdomen: Globally distended, no tenderness, slightly increased spleen palpable below the right costal margin, no hepatomegaly, fluid thrill is negative, normal bowel sounds. Extremities: Venous stasis changes, +1 pitting edema, weak peripheral pulses, no cyanosis, no clubbing Chest: Clear lungs bilaterally Heart: RRR, normal S1-S2 there is a systolic murmur more pronounced in the aortic area Labs: H&H H&H 7.7 and 23.7, WBC 4.5, platelets 98, MCV 77.7, Low retic 3.5 to, reticulocyte production index 0.99, INR 1.23, sodium 129, methadone 735 CT abdomen: Shows evidence of constipation and splenomegaly EKG: Normal sinus resume regular normal axis no ST-T wave changes QTC 459 Assessment and plan 61 years old gentleman with extensive past medical history hypertension peripheral vascular disease liver cirrhosis, hepatitis C, diabetes mellitus who is presenting with one-week history of constipation with previous admission for constipation at [facility] and for workup negative for malignancy or mechanical obstruction. On presentation patient found to be anemic hemoglobin of 7.7 and hematocrit of 23.6 with hypocellularity of all blood cell lines. Patient denies any anemia associated symptoms. Chronic anemia Constipation Liver cirrhosis Diabetes mellitus Hypertension Borderline hyponatremia Admit the patient to general medicine floor Patient received 1 unit of PRBC in the ER, recheck CBC a.m. Ground mechanical diet Further workup for anemia initial shows low iron, normal TIBC and ferritin will check folate and B12 Dulcolax suppository For bowel regimen with senna and MiraLAX and Colace Please get medical records from [facility] for previous treatments Patient is full code ALPS the 4 DVT prophylaxis Pain pathway MILDRED COX, [facility] 01/14/17 2324: Attending MD Review Statement Attending Statement Attending MD Statement: examined this patient, discuss w/resident/PA/[employer] OPERATIONS MANAGER, agreed w/resident/PA/[employer] OPERATIONS MANAGER Attending Assessment/Plan: 61 yo M smoker, with h/o Hep C (diagnosed 1997, 2/2 IVDA, untreated) cirrhosis, insulin depedent diabetes, HTN, PVD, chronic pain and opiate dependence on methadone maintenance program, RLS, recently admitted to [place] 3 weeks ago for ?constipation/ feeling unwell for which he was given enema and also underwent colonoscopy that was essentially negative, comes in today for contipation for past 1 week with abdominal bloating. Last EGD was 1 year ago normal. Denies nausea, vomiting, abdominal pain, melena, BRBPR, heartburn or hematochezia. He follows Dr. Villatoro (GI). He is on a methadone program and states he takes stool softeners. He denied chest pain, dyspnea (nothing out of the usual, has chronic dyspnea at baseline), lightheadedness or palpitations. He reports recent cervical spinal fusion surgery (Mar 2016) after which he developed swallowing issues and is currently on a ground diet with thin liquids. VSS. Exam: pallor+, multiple ecchymotic patches to bilateral arms and to lower abdomen 2/2 hep injections. Dry mucous membranes, Abdomen: soft, distended, BS+, LE: chronic venous stasis, edema+. Labs: WBC 4.5, H/H 7.7/23.6 (9-12.5/28-36), microcytic anemia, Plt 98, INR 1.23, Na 129 (corrected sodium for glucose is 135 ), UA clear. Utox positive for methadone. CT abd/pelvis: marked constipation, no obstruction, mild free fluid in pelvis, splenomegaly, small right pleural effusion with atelectasis. EKG: SR. Rectal exam: Guaiac negative. Orthostats: Lying 178/92 --> Standing 148/70; repeat Lying 125/68 --> Standing 110/62. 1. Constipation in the setting of methadone use. GM 23 Obs, gentle IV hydration, dulcolax suppository, add colace, senna and miralax to regimen. Obtain records from [place] about recent admission. Multiple recent antibiotic use - his claim history shows recent prescription for nitrofurantoin and cefpodoxime/doxycycline in the past 2 months we need to get more collateral information about this. 2. Acute on chronic microcytic anemia, no evidence of acute blood loss. Iron studies suggestive of possible iron deficiency anemia ?anemia of chronic disease. Check retic count, TSH, B12 and folic acid. Guaiac all stools. Will obtain Hematology consult. Patient to follow up GI as outpatient. Type and crossmatched, PRBC was initiated by ER. Will give only 1 unit, recheck CBC in AM. Goal Hb > 7.0. Orthostats were positive, although patient denies any symptoms. Will provide gentle hydration and recheck orthostats in AM. 3. Thrombocytopenia in the setting of Hep C cirrhosis. 4. Confirm methadone dose in AM and resume. 5. CT evidence of small right effusion with atelectasis vs. ?infiltrate. Patient is not hypoxic and denies cough/phlegm. Will provide incentive spirometry and nebs. DVT ppx Alps. Full code. CMR needs to be confirmed and meds need to be resumed.
[2017-01-14 23:28] VITALS: BP 125/68
[2017-01-15] MEDS ORDERED: LACTULOSE10 GM/153 PO (01:30)
[2017-01-15 06:44] VITALS: BP 153/76
--- NOTE | 2017-01-15 07:29 | NUR ---
Physical Therapy: Consult received and chart reviewed. It was documented pt was ambulatory in the ED. Spoke with pt who reports he has no issues ambulating and is at his baseline function with his SC. At this time acute skilled PT is not indicated. Patient in agreement. Will not follow. Thank you.
--- NOTE | 2017-01-15 07:45 | NUR ---
LATE ENTRY: PT'S FINGERSTICK BLOOD SUGAR ASSESSED- <50 ON ACCUCHECK MACHINE. PT ASYMPTOMATIC AND IN NO DISTRESS. 2 ORANGE JUICES PROVIDED WELL A CONTAINER OF CEREAL BRKST TRAY NOT READILY AVAILABLE. DR. YOUNG NOTIFIED OF ABOVE- BLOOD GLUCOSE ORDERED AND RECHECK DONE AT APPROX [id number]. INSULIN HELD. DR. KEARNS NOTIFIED OF LATEST FINGERSTICK LEVEL- LEVEMIR TO BE HELD FOR NOW. TO REASSESS PT'S FINGERSTICK AROUND LUNCHTIME. WILL CONT TO MONITOR.
[2017-01-15 08:31] LABS: ABSOLUTE BASOPHIL COUNT 0 /CUMM (0.0-0.2); ABSOLUTE EOSINOPHIL COUNT 0.2 /CUMM (0.0-0.7); ABSOLUTE GRANULOCYTE CT 2.8 /CUMM (1.4-6.5); ABSOLUTE LYMPH COUNT 0.5 /CUMM (1.2-3.4); ABSOLUTE MONOCYTE COUNT 0.4 /CUMM (0.10-0.60); BASOPHIL % 0.7 % (0.0-2.0); GRANULOCYTE % 72.2 % (42.2-75.2); HEMATOCRIT 28.4 % (42-52); MEAN CORPUSCULAR HGB 26.3 PG (27.0-31.0); MEAN CORPUSCULAR HGB CONC 32.8 G/DL (33.0-37.0); MEAN CORPUSCULAR VOLUME 80.1 FL (80.0-94.0); RBC DISTRIBUTION WIDTH 16.5 % (11.5-14.5); RED BLOOD CELL CT 3.55 /CUMM (4.70-6.10); WHITE BLOOD CELL COUNT 3.8 /CUMM (4.8-10.8)
[2017-01-15 09:59] LABS: PLATELET COUNT 88 /CUMM (130-400)
--- NOTE | 2017-01-15 12:06 | PN- Housestaff ---
URMILA [facility] 01/15/17 1203: Subjective Follow-up For: Constipation Acute on chronic microcytic anemia Subjective: Patient was seen and examined this morning, lying comfortably in bed, denied any chest pain, abdominal pain. He reported having 3 bowel movements. Patient tolerating diet well. Vital signs are stable. Review of Systems Constitutional: Reports: see HPI. Objective Last 24 Hrs of Vital Signs/I&O Vital Signs Date Time Temp Pulse Resp B/P B/P Pulse O2 O2 Flow FiO2 Mean Ox Delivery Rate 01/15 1001 65 118/72 01/15 0644 98.2 66 20 153/76 96 Room Air 01/15 0000 95 Room Air 01/14 2328 98.1 66 18 125/68 95 Room Air 01/14 2137 97.3 74 20 148/84 97 Room Air 01/14 2001 96.3 73 18 150/77 100 Room Air 01/14 1758 96.9 67 18 178/92 99 01/14 1625 99 01/14 1519 98.1 80 18 123/74 97 Room Air Room Air Intake & Output 01/15 1600 01/15 0800 01/15 0000 Intake Total 250 112 Output Total 800 800 Balance -550 -688 Intake, Blood 112 Product Intake, Oral 250 Number 2 Bowel Movements Output, Urine 800 800 Patient 71.214 kg Weight Physical Exam General Appearance: Alert, Oriented X3, Cooperative, No Acute Distress Skin: No Rashes HEENT: Atraumatic, PERRLA, EOMI, Mucous Membr. moist/pink Neck: Supple, No JVD Cardiovascular: Regular Rate, Normal S1, Normal S2, No Murmurs Lungs: Clear to Auscultation, Normal Air Movement Abdomen: Normal Bowel Sounds, Soft, No Tenderness, Distended Neurological: Normal Gait, Normal Speech, Strength at 5/5 X4 Ext, Normal Tone, Sensation Intact, Cranial Nerves 3-12 NL, Reflexes 2+ Extremities: Normal Pulses, venous stasis vascular changes, +1 LE edema BL Assessment/Plan Assessment: Mr. Cedillo is a 61 y/o M with PMHx of HCV cirrhosis, PVD and insulin- dependent T2DM who presents with constipation, found to be anemic with H/H of 7.7/23. #Acute on chronic microcytic anemia: Iron studies with low iron and normal TIBC and ferritin consistent with mixed iron deficiency anemia and anemia of chronic disease. RPI 0.99% suggesting inadequate bone marrow response, likely secondary to bone marrow suppression from HCV cirrhosis. No evidence of acute blood loss including hematemesis, melena or BRBPR. Recent colonoscopy at [facility] was negative. Last EGD, 1 year ago, was unrevealing. Positive orthostatics on admission, which later resolved, but no other symptoms associated with anemia including chest pain, palpitations or shortness of breath. * Continue observation in General Medicine. * Hematology consult placed, pending recommendation * H&H 9.3/28.4 status post transfuse 1 unit of pRBCs. * Guaiac stool negative 2 * Patient had colonoscopy at [facility] last month, will obtain records. * Request for medical records from [facility] regarding previous hospitalization was sent. #Constipation: Of unclear etiology but possibly related to methadone use. CT Abdomen/Pelvis with marked constipation but no bowel obstruction. Recent workup at [facility] including colonoscopy negative. Takes psyllium and Senokot-S as outpatient. * Aggressive bowel regimen with scheduled Miralax, Senokot-S and Colace. * Dulcolax suppository administered. * Patient had 3 bowel movements today. #HCV cirrhosis: No evidence of decompensated cirrhosis. * Continue edmah-vc-cvkywurjk lactulose 10 mg PO TID. * ALPs for DVT PPx. No pharmacologic anticoagulation in the setting of thrombocytopenia. #Right pleural effusion: CT Abdomen/Pelvis with small right pleural effusion consistent with atelectasis vs. infiltrate. Patient is comfortable and satting well on room air and denies cough. * TRC and nebs. * Encourage incentive spirometry. #IDDM: On Levemir and lispro. * Continue fuead-bj-axtqfakvq Levemir 14 units SQ BID. * Accu-checks and low-dose sliding scale Novolog TIDAC. * Patient had hypoglycemia this morning of less than 50, responded well to oral intake, continue to monitor for hypoglycemia. #HTN: * Continue xputo-ax-fxzjacqyc lisinopril 20 mg PO QAM, spironolactone 100 mg PO BID #Opioid dependence: Maintained on methadone 70 mg PO daily from [facility]. * Patient received 1 dose of methadone 70 mg by mouth * Confirmation of methadone dose from [facility] is pending #BPH: * Continue ukfoe-wt-vcxyumfuo doxazosin 8 mg PO QPM and mirabegron 50 mg PO daily. #Restless leg syndrome: * Continue qhooj-vu-osjmtsphq Flexeril 10 mg PO BID PRN. Diet: Consistent Carbohydrate 3 - Mechanical soft/ground and thin liquids Pain: Motrin 600 mg PO Q6H PRN for moderate pain (scale 4-6) Toradol 15 mg IV Q6H PRN for severe pain (scael 7-10) DVT PPx: ALPs CODE: FULL Patient's medication was confirmed, a list of his medication sheet is in the chart. Problem List: 1. Thrombocytopenia 2. BPH (benign prostatic hyperplasia) 3. HTN (hypertension) 4. IDDM (insulin dependent diabetes mellitus) 5. Microcytic anemia 6. Constipation Pain Ratin Pain Location: None Pain Goal: Pain 4 or less Pain Plan: Mild pain pathway Tomorrow's Labs & Rationales: CBC, CMP and liver function test NEIL [facility] 01/15/17 1303: Attending MD Review Statement Attending Statement Attending MD Statement: examined this patient, discuss w/resident/PA/ABATTOIR SUPERVISOR, agreed w/resident/PA/ABATTOIR SUPERVISOR, reviewed EMR data (avail), discussed with nursing, discussed with case mgmt, reviewed images, amended to note Attending Assessment/Plan: 61-year-old male, active smoker, with past medical history significant for hep C , cirrhosis, IDDM, hypertension, peripheral vascular disease, chronic pain and opioid dependence and is on methadone maintenance program, restless leg syndrome has been admitted with constipation and abdominal bloating. Patient had a recent admission to this and [facility] for constipation which was relieved with enemas and had underwent colonoscopy which was presumably negative. Patient follows up with the GI Dr. Nicole. On admission he was also found to have acute on chronic microcytic anemia. He received 1 unit of packed RBCs and this morning his hemoglobin has improved to 9.3. Patient was seen and examined on the bedside and reported that he is feeling fine and has +2 bowel movements with no more constipation. Per patient he takes 70 mg of methadone which we were unable to confirm but would give him 70 mg of methadone this morning. Hematology consult has been requested and patient would follow-up with the GI as an outpatient. Patient has also been kept on IV fluids and his creatinine function has improved to he was not by definition an DILIP. Patient is kept on his home dose of insulin but given his low blood sugar this morning, we'll keep him on the low-dose insulin sliding scale. Will continue the rest of his home medications and will reconfirm his methadone dose in the morning.
[2017-01-15 14:49] VITALS: BP 140/66
--- NOTE | 2017-01-15 22:00 | NUR ---
PATIENT BS 117. DID NOT GIVE SCHEDULED 14 UNITS LEVEMIR PER MD STONE H. PATIENT REPORTED HE ATE DINNER. NO S&S OF HYPER/HYPOGLYCEMIA. MD STONE ORDERED TO RE-CHECK BS AT 0600 AM ON 01/16/17.
[2017-01-15 22:41] VITALS: BP 140/70
--- NOTE | 2017-01-16 06:05 | NUR ---
BS THIS AM 92
[2017-01-16 06:17] VITALS: BP 152/80
--- NOTE | 2017-01-16 07:32 | PN- Housestaff ---
NELA COX,ETHAN 01/16/17 0732: Subjective Follow-up For: Constipation, Anemia Complaints: no complaints Subjective: I followed up and examined the patient today. She was resting comfortably in bed, not in distress, vitals stable, no overnight issues. He was wondering when he could be discharged. His last bowel movement was around yesterday afternoon. Review of Systems Constitutional: Reports: no symptoms. Objective Last 24 Hrs of Vital Signs/I&O Vital Signs Date Time Temp Pulse Resp B/P B/P Pulse O2 O2 Flow FiO2 Mean Ox Delivery Rate 01/16 1438 72 137/70 01/16 1433 98.8 73 20 122/78 100 Room Air 01/16 0617 97.9 59 20 152/80 99 01/15 2241 98.4 66 20 140/70 99 Room Air Intake & Output 01/16 1600 01/16 0800 01/16 0000 Intake Total Output Total 550 550 525 Balance -550 -550 -525 Output, Urine 550 550 525 Patient 71.214 kg Weight Physical Exam General Appearance: Alert, Oriented X3, Cooperative, No Acute Distress Other Physical Findings: Skin: No Rashes HEENT: Atraumatic, PERRLA, EOMI, Mucous Membr. moist/pink Neck: Supple, No JVD Cardiovascular: Regular Rate, Normal S1, Normal S2, No Murmurs Lungs: Clear to Auscultation, Normal Air Movement Abdomen: Normal Bowel Sounds, Soft, No Tenderness, Distended (less than on admission per patient) Neurological: Normal Gait, Normal Speech, grossly intact Extremities: Normal Pulses, venous stasis vascular changes inc b/l darkening of skin, +1 LE edema BL Current Medications: Current Medications Sig/Quinton Start time Last Medication Dose Route Stop Time Status Admin Amlodipine Besylate 10 MG DAILY 01/16 1116 DC PO Cholecalciferol 800 IU DAILY 01/16 1207 AC 01/16 PO 1315 Cyclobenzaprine HCl 10 MG BID PRN 01/14 2215 AC PO Docusate Sodium 100 MG DAILY 01/15 1000 AC 01/16 PO 1108 Doxazosin Mesylate 8 MG QPM 01/15 2200 AC 01/15 PO 2222 Furosemide 20 MG QAM 01/15 1000 AC 01/16 PO 1109 Hydroxyzine HCl 10 MG DAILY NEEDED PRN 01/14 2215 AC PO Ibuprofen 600 MG Q6P PRN 01/15 0245 DC PO Insulin Aspart 0 TIDAC 01/16 1700 AC SC Insulin Aspart 0 TIDAC 01/15 0800 DC 01/16 SC 1237 Insulin Detemir 10 UNITS BID 01/16 2200 AC SC Insulin Detemir 14 UNITS BID 01/14 2203 DC 01/14 SC 2323 Ketorolac 15 MG Q6P PRN 01/15 0245 DC Tromethamine IV Lactulose 10 GM TID 01/15 1000 AC 01/16 PO 1723 Lisinopril 10 MG DAILY 01/17 1000 AC PO Lisinopril 10 MG ONCE ONE 01/16 1445 DC 01/16 PO 01/16 1446 1438 Lisinopril 10 MG DAILY 01/15 1000 DC 01/15 PO 1001 Magnesium Oxide 400 MG DAILY 01/16 1000 DC PO Magnesium Oxide 400 MG BID 01/15 1000 AC 01/15 PO 2222 Mirabegron 50 MG DAILY 01/15 1000 AC 01/16 PO 1108 Polyethylene Glycol 17 GM DAILY 01/15 1000 AC 01/16 PO 1443 Senna/Docusate Sodium 1 TAB TID 01/15 1000 AC 01/16 PO 1723 Spironolactone 100 MG BID 01/15 1000 AC 01/16 PO 1109 Trazodone HCl 100 MG QPM 01/14 2215 AC 01/15 PO 2222 Last 24 Hrs of Lab/Jeffy Results Last 24 Hrs of Labs/Mics: Laboratory Tests 01/16/17 0710: Anion Gap 8, Estimated GFR > 60, BUN/Creatinine Ratio 15.0, Calcium 9.3, Phosphorus 3.4, Total Bilirubin 0.7, Direct Bilirubin 0.4, AST 26, ALT 40, Alkaline Phosphatase 62, Total Protein 6.8, Albumin 3.4 L, 25-OH Vitamin D Total 20.4 L, CBC w Diff NO MAN DIFF REQ, RBC 3.79 L, MCV 79.3 L, MCH 26.3 L , RDW 16.6 H, MPV 8.0, Gran % 67.3, Lymphocytes % 14.8 L, Monocytes % 13.9 H, Eosinophils % 3.0, Basophils % 1.0, Absolute Granulocytes 2.1, Absolute Lymphocytes 0.5 L, Absolute Monocytes 0.4, Absolute Eosinophils 0.1, Absolute Basophils 0, PUBS MCHC 33.1 Assessment/Plan Assessment: Mr. Cedillo is a 61 y/o M with PMHx of HCV cirrhosis, PVD and insulin- dependent T2DM who presents with constipation, found to be anemic with H/H of 7.7/23. #Acute on chronic microcytic anemia: Iron studies with low iron and normal TIBC and ferritin consistent with mixed iron deficiency anemia and anemia of chronic disease. RPI 0.99% suggesting inadequate bone marrow response, likely secondary to bone marrow suppression from HCV cirrhosis. No evidence of acute blood loss including hematemesis, melena or BRBPR. Recent colonoscopy at [facility] was negative. Last EGD, 1 year ago, was unrevealing. Positive orthostatics on admission, which later resolved, but no other symptoms associated with anemia including chest pain, palpitations or shortness of breath. * Continue observation in General Medicine. * Hematology consultation placed, appreciate recommendation * H&H 9.3/28.4 status post transfuse 1 unit of pRBCs. * Guaiac stool negative 2 * pending medical records from [facility]. #Constipation: Of unclear etiology but possibly related to methadone use. CT Abdomen/Pelvis with marked constipation but no bowel obstruction. Recent workup at [facility] including colonoscopy negative. Takes psyllium and Senokot-S as outpatient. * Aggressive bowel regimen with scheduled Miralax, Senokot-S and Colace. * Patient had 4 bowel movements on Monday. * Will continue the bowel regimen. #HCV cirrhosis: No evidence of decompensated cirrhosis. * Continue wwugp-jb-ocvanhdwj lactulose 10 mg PO TID to titrate to three bowel movements per day. No more no less. * ALPs for DVT PPx. No pharmacologic anticoagulation in the setting of thrombocytopenia. * Patient will require DEXA scan as an outpatient basis due to his history of low vitamin D, and chronic liver disease/cirrhosis. * Patient has been advised for low sodium high protein diet for cirrhotic patient. He mentioned that he has been voiding high sodium since last 10 years. He is agreeable to the plan. #Right pleural effusion: CT Abdomen/Pelvis with small right pleural effusion consistent with atelectasis vs. infiltrate. Patient is comfortable and satting well on room air and denies cough. * TRC and nebs as necessary. * Encourage incentive spirometry. #IDDM: On Levemir and lispro. * Decreased his Levemir dose from 14 to 10 units SQ BID per Dr Dick, who is his musician instrumental. As he was having low blood sugar levels, his sliding scale insulin NovoLog was also reduced today. * Continue Accu-checks TID/AC and HS. * Nutrition consultation was made, we suggested appropriate dietary instructions to the patient today. #HTN: * Continue qyfag-yy-ejwpofzew lisinopril 20 mg PO QAM, spironolactone 100 mg PO BID #Opioid dependence: Maintained on methadone 70 mg PO daily from [facility]. * Contiue methadone 70 mg by mouth daily. * Confirmation of methadone dose from [facility] done on Monday01/16/[address] Carter. #BPH: * Continue cvvts-bf-yaiirqtjq doxazosin 8 mg PO QPM and mirabegron 50 mg PO daily. #Restless leg syndrome: * Continue lzksp-hq-ufizspwbe Flexeril 10 mg PO BID PRN. Diet: Consistent Carbohydrate 3 - Mechanical soft/ground and thin liquids with low sodium and high protein. Ibuprofen was removed for pain given his liver condition. DVT PPx: ALPs CODE: FULL Patient's medication was confirmed, a list of his medication sheet is in the chart. Problem List: 1. Constipation 2. Anemia 3. Cirrhosis 4. Thrombocytopenia 5. Uncontrolled diabetes mellitus Pain Ratin Pain Location: - Pain Goal: Pain 4 or less Pain Plan: prn, NSAID removed from the list today. Trying not to provide opiate medication. Tomorrow's Labs & Rationales: CBC, BEP to f/u plt, Farhat REYNOLDS MD,[facility] 01/16/17 1138: Attending MD Review Statement Attending Statement Attending MD Statement: examined this patient, discuss w/resident/PA/DIRECTIONAL DRILL OPERATOR, agreed w/resident/PA/DIRECTIONAL DRILL OPERATOR, discussed with family, reviewed EMR data (avail), discussed with nursing, discussed with case mgmt, reviewed images, amended to note Attending Assessment/Plan: Patient seen and examined, had a bowel movement yesterday. He wants to make sure that he has another bowel movement today. H&H has improved after transfusion. His blood sugar yesterday was low and its again low today. He did not receive his Levemir yesterday. Vital Signs Date Time Temp Pulse Resp B/P B/P Pulse O2 O2 Flow FiO2 Mean Ox Delivery Rate 01/16 0617 97.9 59 20 152/80 99 01/15 2241 98.4 66 20 140/70 99 Room Air 01/15 1449 97.4 69 18 140/66 99 01/15 1425 Room Air on exam: aox3, nad. cv; s1,s2, rrr resp; clear bad; soft, nt, bs+ ext; ch venous stasis changes. Laboratory Tests 01/16 0710 Chemistry Sodium (137 - 145 mmol/L) 138 Potassium (3.5 - 5.1 mmol/L) 5.3 H Chloride (98 - 107 mmol/L) 102 Carbon Dioxide (22 - 30 mmol/L) 28 Anion Gap (5 - 16) 8 BUN (9 - 20 mg/dL) 15 Creatinine (0.7 - 1.2 mg/dL) 1.0 Estimated GFR (>60 ml/min) > 60 BUN/Creatinine Ratio (7 - 25 %) 15.0 Calcium (8.4 - 10.2 mg/dL) 9.3 Phosphorus (2.5 - 4.5 mg/dL) 3.4 Total Bilirubin (0.2 - 1.3 mg/dL) 0.7 Direct Bilirubin (< 0.4 mg/dL) 0.4 AST (17 - 59 U/L) 26 ALT (21 - 72 U/L) 40 Alkaline Phosphatase (< 127 U/L) 62 Total Protein (6.3 - 8.2 g/dL) 6.8 Albumin (3.5 - 5.0 g/dL) 3.4 L 25-OH Vitamin D Total (30 - 100 ng/ml) 20.4 L Hematology CBC w Diff NO MAN DIFF REQ WBC (4.8 - 10.8 /CUMM) 3.1 L RBC (4.70 - 6.10 /CUMM) 3.79 L Hgb (14.0 - 18.0 G/DL) 9.9 L Hct (42 - 52 %) 30.1 L MCV (80.0 - 94.0 FL) 79.3 L MCH (27.0 - 31.0 PG) 26.3 L RDW (11.5 - 14.5 %) 16.6 H Plt Count (130 - 400 /CUMM) 85 L MPV (7.4 - 10.4 FL) 8.0 Gran % (42.2 - 75.2 %) 67.3 Lymphocytes % (20.5 - 51.1 %) 14.8 L Monocytes % (1.7 - 9.3 %) 13.9 H Eosinophils % (0 - 5 %) 3.0 Basophils % (0.0 - 2.0 %) 1.0 Absolute Granulocytes (1.4 - 6.5 /CUMM) 2.1 Absolute Lymphocytes (1.2 - 3.4 /CUMM) 0.5 L Absolute Monocytes (0.10 - 0.60 /CUMM) 0.4 Absolute Eosinophils (0.0 - 0.7 /CUMM) 0.1 Absolute Basophils (0.0 - 0.2 /CUMM) 0 PUBS MCHC (33.0 - 37.0 G/DL) 33.1 A/P; 61 y/o M iwth pmh sig for HCV cirrhosis, PVD and insulin-dependent T2DM, placed on general medicine observation bed the intractable constipation as well as acute on chronic anemia. Etiology of anemia is likely secondary to anemia of chronic disease. Extremities negative. Recent workup including endoscopy and colonoscopy as patient reports was also negative for any acute bleeding at [facility]. At this point we'll continue the patient on bowel regimen. If he his a suppository, he can have that. Patient has not developed hypoglycemia and has not received his Levemir yesterday or today. Blood sugars were 92 today. He follows up with Dr. Dick. Please consult Dr. Dick. H&H improved after transfusion. Patient was seen by Dr. Urban. Outpatient follow-up is recommended. Patient already is following with GI doctor Dr. Nicole who was associated with [facility]. He would like to follow-up with the same doctor as an outpatient. Continue other current medications. Secondary to hypoglycemia, patient is not medically stable for discharge and he will be admitted to inpatient. DVT prophylaxis: ALPS. D/W at bedside.
[2017-01-16 08:12] LABS: ABSOLUTE BASOPHIL COUNT 0 /CUMM (0.0-0.2); ABSOLUTE EOSINOPHIL COUNT 0.1 /CUMM (0.0-0.7); ABSOLUTE GRANULOCYTE CT 2.1 /CUMM (1.4-6.5); ABSOLUTE LYMPH COUNT 0.5 /CUMM (1.2-3.4); ABSOLUTE MONOCYTE COUNT 0.4 /CUMM (0.10-0.60); GRANULOCYTE % 67.3 % (42.2-75.2); HEMATOCRIT 30.1 % (42-52); MEAN CORPUSCULAR HGB 26.3 PG (27.0-31.0); MEAN CORPUSCULAR HGB CONC 33.1 G/DL (33.0-37.0); MEAN CORPUSCULAR VOLUME 79.3 FL (80.0-94.0); RBC DISTRIBUTION WIDTH 16.6 % (11.5-14.5); RED BLOOD CELL CT 3.79 /CUMM (4.70-6.10); WHITE BLOOD CELL COUNT 3.1 /CUMM (4.8-10.8)
[2017-01-16 08:17] LABS: PLATELET COUNT 85 /CUMM (130-400)
--- NOTE | 2017-01-16 08:17 | Cons- Hematology ---
General Information and HPI Consulting Request Date of Consult: 01/16/17 Requested By: MILDRED COX,DA Reason for Consult: anemia Source of Information: patient, old records Exam Limitations: no limitations History of Present Illness: Mr. Cedillo is a 61-year-old male with HCV cirrhosis, PVD, DM, and spinal stenosis s/p fusion surgery who presented to the hospital with abdominal pain and constipation. He has not had a bowel movement for 5 days prior to admission. He was recently at [facility] and they did a colonoscopy on him a week ago per the patient. He presented with similar symptoms. Colonoscopy per the patient was normal. He had not had any other symptoms. He reports all of his medical issues is secondary to his spinal fusion surgery. He denies any fever, chills, nausea, vomiting, shortness of breath, or chest pain. He has not had any bleeding issues. He denies any weight loss. On admission to [facility], he was noted to have hemoglobin of 7.7 g/dL, hematocrit 23.6%, platelet of 98,000, and WBC of 4500. Renal function was noted to have creatinine of 1.1. CT without contrast of the abdomen/pelvis noted constipation and splenomegaly. He was transfused with 1 unit of pRBC and hemoglobin improved to 9.3 g/dL with hematocrit of 28.4%. Of note, he has a history of HCV diagnosed in 1997. He states this is likely from his previous drug usage. He last used drug 35 years ago. His last alcohol usage was 1 year ago. Allergies/Medications Allergies: Coded Allergies: acetaminophen (From TYLENOL-CODEINE) (NAUSEA 01/14/17) codeine (From TYLENOL-CODEINE) (NAUSEA 01/14/17) Home Med List: Cyclobenzaprine HCl 10 MG TABLET 1 TAB PO BID PRN RLS (Reported) Doxazosin Mesylate 8 MG TABLET 1 TAB PO QPM PROSTATE (Reported) Fluticasone Propionate 50 MCG/ACTUATION SPRAY.SUSP 2 SPRAY NASB PRN ALLERGIES (Reported) Furosemide (Lasix) 20 MG TABLET 1 TAB PO QAM DIURETIC (Reported) Hydroxyzine HCl 10 MG TABLET 1 TAB PO Q8P PRN ITCHING (Reported) Insulin Detemir (Levemir) 100 UNIT/ML VIAL 14 UNITS SC BID DM (Reported) Insulin Lispro (Humalog) 100 UNIT/ML VIAL DM (Reported) Lactulose 10 GRAM/15 ML SOLUTION 30 ML PO TID LIVER CIRRHOSIS (Reported) Lisinopril 10 MG TABLET 1 TAB PO DAILY BP (Reported) Magnesium Oxide (Magnesium) 400 MG CAPSULE 1 CAP PO BID SUPPLEMENT (Reported) Methadone HCl 10 MG/ML ORAL.CONC 70 MG PO DAILY MENTAL HEALTH (Reported) Mirabegron (Myrbetriq) 50 MG TAB.ER.24H 1 TAB PO DAILY BLADDER (Reported) Nitrofurantoin Monohyd/M-Cryst (Nitrofurantoin [place]-Mcr 100 MG) 100 MG CAPSULE 1 CAP PO DAILY ANTIBIOTIC (Reported) Psyllium Husk (Metamucil) (Unknown Strength) CAPSULE (Unknown Dose) PO BID GI (Reported) Sennosides/Docusate Sodium (Senokot-S Tablet) 8.6 MG-50 MG TABLET 1 TAB PO TID GI (Reported) Spironolactone 100 MG TABLET 1 TAB PO BID BP (Reported) Trazodone HCl 100 MG TABLET 1 TAB PO QPM SLEEP (Reported) Current Medications: Current Medications Sig/Quinton Start time Last Medication Dose Route Stop Time Status Admin Cyclobenzaprine HCl 10 MG BID PRN 01/14 2215 AC PO Docusate Sodium 100 MG DAILY 01/15 1000 AC PO Doxazosin Mesylate 8 MG QPM 01/15 2200 AC 01/15 PO 2222 Furosemide 20 MG QAM 01/15 1000 AC 01/15 PO 1002 Hydroxyzine HCl 10 MG DAILY NEEDED PRN 01/14 2215 AC PO Ibuprofen 600 MG Q6P PRN 01/15 0245 AC PO Insulin Aspart 0 TIDAC 01/15 0800 AC SC Insulin Detemir 14 UNITS BID 01/14 2203 AC 01/14 SC 2323 Ketorolac 15 MG Q6P PRN 01/15 0245 AC Tromethamine IV Lactulose 10 GM TID 01/15 1000 AC PO Lisinopril 10 MG DAILY 01/15 1000 AC 01/15 PO 1001 Magnesium Oxide 400 MG BID 01/15 1000 AC 01/15 PO 2222 Methadone HCl 70 MG ONCE ONE 01/15 1130 DC 01/15 PO 01/15 1131 1215 Mirabegron 50 MG DAILY 01/15 1000 AC 01/15 PO 1002 Polyethylene Glycol 17 GM DAILY 01/15 1000 AC PO Senna/Docusate Sodium 1 TAB TID 01/15 1000 AC PO Sodium Chloride 1,000 ML Q13H 01/15 0215 DC 01/15 IV 01/15 1514 0400 Spironolactone 100 MG BID 01/15 1000 AC 01/15 PO 2223 Trazodone HCl 100 MG QPM 01/14 2215 AC 01/15 PO 2222 Review of Systems Review of Systems Constitutional: Denies: chills, fever, weakness, unexplained weight loss. Cardiovascular: Reports: edema, peripheral edema. Denies: chest pain, palpitations, syncope. Respiratory: Denies: short of breath. GI: Reports: abdominal pain, constipation. Denies: melena, nausea, bloody stool, changes in stool, vomiting. Genitourinary: Reports: frequency. Musculoskeletal: Reports: neck pain. Neurological/Psychological: Denies: anxiety. Hematologic/Endocrine: Denies: bruising, bleeding. Immunologic/Allergic: Denies: lymphadenopathy. All Other Systems: Reviewed and Negative Past History Travel History Traveled to [place] past 21 day No Medical History Blood Transfusion Hx: Yes Neurological: restless leg syndrome EENT: NONE Cardiovascular: hypertension, PVD Respiratory: NONE Gastrointestinal: NONE Hepatic: cirrhosis, hepatitis C Renal: NONE Musculoskeletal: degen joint disease Psychiatric: chronic pain disorder, opioid dependence Endocrine: diabetes Blood Disorders: anemia Surgical History Surgical History: hernia repair x2 lumbar discectomy cervical spinal fusion prostate laser surgery Family History Relations & Conditions If Any: MOTHER, ; Cause: Cancer. FH: cancer Peripheral vascular disease FATHER, ; Cause: Heart attack. Psychosocial History Where Do You Live? Home Who Do You Live With? spouse Services at Home: None Primary Language: Mongolian Smoking Status: Current Everyday Smoker (Smokes 1/2 PPD) ETOH Use: denies use Illicit Drug Use: denies illicit drug use (hx of IVDU - quit 35 years ago) Functional Ability ADLs Independent: dressing, eating, toileting, bathing. Ambulation: cane IADLs Independent: shopping, housework, finances, food prep, telephone, transportation , medication admin. Exam & Diagnostic Data Vital Signs and I&O Vital Signs Date Time Temp Pulse Resp B/P B/P Pulse O2 O2 Flow FiO2 Mean Ox Delivery Rate 01/16 617 97.9 59 20 152/80 99 01/15 2241 98.4 66 20 140/70 99 Room Air 01/15 1449 97.4 69 18 140/66 99 01/15 1425 Room Air 01/15 1001 65 118/72 Intake & Output 01/16 0800 01/16 0000 01/15 1600 Intake Total 925 Output Total 550 525 520 Balance -550 -525 405 Intake, IV 525 Intake, Oral 400 Number 2 Bowel Movements Output, Urine 550 525 520 Patient 71.214 kg Weight Physical Exam General Appearance: well developed/nourished, no apparent distress, alert, awake , comfortable, thin Head: atraumatic Eyes: Bilateral: PERRL. Ears, Nose, Throat: normal pharynx Neck: supple Respiratory: normal breath sounds, chest non-tender, quiet respiration Cardiovascular: regular rate/rhythm, edema, systolic murmur Gastrointestinal: soft, non-tender, distention, hypoactive bowel sounds, splenomegaly Extremities: 1+edema BLE, hyperpigmented lower extremities Neurologic/Psych: awake, alert, oriented x 3, abnormal gait (slow, unsteady) Skin: ecchymosis (bilateral upper extremity) Last 48 Hours of Lab Results: Laboratory Tests 01/16 01/15 01/14 0710 0703 1846 Chemistry Sodium (137 - 145 mmol/L) Pending 131 L Potassium (3.5 - 5.1 mmol/L) Pending 4.3 Chloride (98 - 107 mmol/L) Pending 100 Carbon Dioxide (22 - 30 mmol/L) Pending 26 Anion Gap (5 - 16) Pending 5 BUN (9 - 20 mg/dL) Pending 15 Creatinine (0.7 - 1.2 mg/dL) Pending 0.9 Estimated GFR (>60 ml/min) > 60 BUN/Creatinine Ratio (7 - 25 %) Pending 16.7 Glucose (65 - 99 mg/dL) 57 L Lactic Acid Cancelled Magnesium (1.6 - 2.3 mg/dL) 1.7 Total Bilirubin Pending Direct Bilirubin Pending AST Pending ALT Pending Alkaline Phosphatase Pending Total Protein Pending Albumin Pending Vitamin B12 (239 - 931 pg/mL) 945 H Folate (2.76 - 20.0 ng/mL) 15.2 TSH (0.270 - 4.200 uIU/mL) 3.390 Hematology CBC w Diff Pending NO MAN DIFF REQ WBC (4.8 - 10.8 /CUMM) Pending 3.8 L RBC (4.70 - 6.10 /CUMM) Pending 3.55 L Hgb (14.0 - 18.0 G/DL) Pending 9.3 L Hct (42 - 52 %) Pending 28.4 L MCV (80.0 - 94.0 FL) Pending 80.1 MCH (27.0 - 31.0 PG) Pending 26.3 L RDW (11.5 - 14.5 %) Pending 16.5 H Plt Count (130 - 400 /CUMM) Pending 88 L MPV (7.4 - 10.4 FL) Pending 8.0 Gran % (42.2 - 75.2 %) 72.2 Lymphocytes % (20.5 - 51.1 %) 12.5 L Monocytes % (1.7 - 9.3 %) 10.6 H Eosinophils % (0 - 5 %) 4.0 Basophils % (0.0 - 2.0 %) 0.7 Absolute Granulocytes (1.4 - 6.5 /CUMM) 2.8 Absolute Lymphocytes (1.2 - 3.4 /CUMM) 0.5 L Absolute Monocytes (0.10 - 0.60 /CUMM) 0.4 Absolute Eosinophils (0.0 - 0.7 /CUMM) 0.2 Absolute Basophils (0.0 - 0.2 /CUMM) 0 PUBS MCHC (33.0 - 37.0 G/DL) Pending 32.8 L 01/14 01/14 1818 1746 Coagulation PT (9.4 - 12.5 SEC) 12.9 H INR (0.90 - 1.17) 1.23 H APTT (25 - 37 SEC) 31 Toxicology Urine Opiates Screen (>2000 NG/ML) < 100.00 Methadone Screen (>300 NG/ML) > 735 H Barbiturate Screen (>200 NG/ML) < 60 Ur Phencyclidine Scrn (>25 NG/ML) < 6.00 Amphetamines Screen (>1000 NG/ML) < 100 U Benzodiazepines Scrn (>200 NG/ML) < 85 Urine Cocaine Screen (>300 NG/ML) < 50 Urine Cannabis Screen (>50 NG/ML) < 5.00 Urines Urine Color (YEL,AMB,STR) YEL Urine Clarity (CLEAR) CLEAR Urine pH (5.0 - 8.0) 6.0 Ur Specific [place] (1.001 - 1.035) 1.010 Urine Protein (NEG,<30 MG/DL) NEG Urine Ketones (NEG) NEG Urine Nitrite (NEG) NEG Urine Bilirubin (NEG) NEG Urine Urobilinogen (0.1 - 1.0 EU/dl) 0.2 Ur Leukocyte Esterase (NEG) NEG Ur Microscopic EXAM NOT REQUIRED Urine Hemoglobin (NEG) NEG Urine Glucose (N MG/DL) NEG 01/14 1606 Chemistry Sodium (137 - 145 mmol/L) 129 L Potassium (3.5 - 5.1 mmol/L) 4.7 Chloride (98 - 107 mmol/L) 95 L Carbon Dioxide (22 - 30 mmol/L) 24 Anion Gap (5 - 16) 11 BUN (9 - 20 mg/dL) 14 Creatinine (0.7 - 1.2 mg/dL) 1.1 Estimated GFR (>60 ml/min) > 60 BUN/Creatinine Ratio (7 - 25 %) 12.7 Glucose (65 - 99 mg/dL) 89 Lactic Acid (0.7 - 2.1 mmol/L) 1.6 Calcium (8.4 - 10.2 mg/dL) 9.1 Iron (49 - 181 ug/dL) 19 L TIBC (261 - 462 ug/dL) 348 Ferritin (17.9 - 464 ng/mL) 47.1 Total Bilirubin (0.2 - 1.3 mg/dL) 0.7 AST (17 - 59 U/L) 26 ALT (21 - 72 U/L) 44 Alkaline Phosphatase (< 127 U/L) 62 Total Protein (6.3 - 8.2 g/dL) 6.7 Albumin (3.5 - 5.0 g/dL) 3.5 Globulin (1.9 - 4.2 gm/dL) 3.2 Albumin/Globulin Ratio (1.1 - 2.2 %) 1.1 Hematology CBC w Diff NO MAN DIFF REQ WBC (4.8 - 10.8 /CUMM) 4.5 L RBC (4.70 - 6.10 /CUMM) 3.04 L Hgb (14.0 - 18.0 G/DL) 7.7 L Hct (42 - 52 %) 23.6 L MCV (80.0 - 94.0 FL) 77.7 L MCH (27.0 - 31.0 PG) 25.3 L RDW (11.5 - 14.5 %) 15.7 H Plt Count (130 - 400 /CUMM) 98 L MPV (7.4 - 10.4 FL) 7.9 Gran % (42.2 - 75.2 %) 81.1 H Lymphocytes % (20.5 - 51.1 %) 8.8 L Monocytes % (1.7 - 9.3 %) 8.3 Eosinophils % (0 - 5 %) 1.6 Basophils % (0.0 - 2.0 %) 0.2 Absolute Granulocytes (1.4 - 6.5 /CUMM) 3.7 Absolute Lymphocytes (1.2 - 3.4 /CUMM) 0.4 L Absolute Monocytes (0.10 - 0.60 /CUMM) 0.4 Absolute Eosinophils (0.0 - 0.7 /CUMM) 0.1 Absolute Basophils (0.0 - 0.2 /CUMM) 0 PUBS MCHC (33.0 - 37.0 G/DL) 32.5 L Retic Count (0.5 - 2.0 %) 3.52 H Imaging/Other Studies: CT abdomen/pelvis without contrast 01/14/2017: 1. There is marked constipation. No teodoro bowel obstruction is seen. There is no appendicitis or diverticulitis. No free intraperitoneal air or abscess is seen. 2. There is cholelithiasis, without CT finding to suggest cholecystitis. 3. There is mild free fluid in the lower pelvis and upper abdomen. 4. A small right pleural effusion is seen, and there is mild medial right base linear atelectasis. There is mild left base atelectasis versus infiltrate, with air bronchograms. 5. There is splenomegaly. 6. There is degenerative disc disease at L5-S1. Assessment/Plan Assessment: Mr. Cedlilo is a 61-year-old male with HCV cirrhosis, PVD, DM, and spinal stenosis who presented to the hospital with abdominal pain, constipation, and anemia. He has a recent colonoscopy per the patient. His last EGD was a year ago. He sees Dr. Villatoro of GI. Mr. Cedillo reports no bleeding issues. Blood work during admission demonstrated normal vitamin B12, normal folate, low serum iron, normal TIBC, and normal ferritin. He has pancytopenia. He seems to have an anemia of chronic disease with likely a component of iron deficiency. He does have evidence of sequestration with splenomegaly. This is a common finding of his underlying HCV cirrhosis. His anemia is likely secondary to multiple factors. He should have AFP check and US done. He should have work up for GI bleeding including stool occult blood evaluation, EGD, and obtain OSH colonoscopy records. Recommendations: 1. Evaluate for GI bleeding: stool occult blood, EGD, obtain colonoscopy records 2. Check AFP and US liver or CT with contrast, may be done as outpatient also 3. Follow up with his GI physician as an outpatient 4. Consider iron supplement daily as tolerated 5. Follow up as outpatient Problem List: 1. Thrombocytopenia 2. Microcytic anemia 3. IDDM (insulin dependent diabetes mellitus) 4. Constipation Other Findings/Comments: Please call [phone] with any questions or concerns. Consult Acknowledgment - Thank you for your consult request.
--- NOTE | 2017-01-16 10:34 | Patient Discharge Instructions ---
Discharge Instructions General Discharge Information You were seen/treated for: Constipation; Anemia; Cirrhosis Special Instructions: #1 Please follow up with Gastroentrologist within one week . #2 Please follow up with [facility] within 1-2 weeks after discharge . #3 Please adjust the dose of Lactulose to make sure that you have three bowel miovements in a day. #4 Please avoid NSAIDs, narcotics and benzodiazepine. #5 Please follow a salt restricted diet of less than 2 gm a day. #6 Follow up with your PCP and keep; Ensure updating your Influenza Vaccine and Pneumonia Vaccine [id number]. #7 Please follow up with your PCP with the results of the DEXA test Diet Continue normal diet: No Recommended Diet: Diabetic, Cirrhosis, low salt , High protein 1.2 g/kg/day Additional DIET Information: provided above Activity Full Activity/No Limits: Yes Acute Coronary Syndrome Inclusion Criteria At DC or during hospital stay patient has or had the following: ACS DIAGNOSIS No Discharge Core Measures Meds if any: Prescribed or Continued at Discharge Meds if any: NOT Prescribed or Continued at Discharge Congestive Heart Failure Inclusion Criteria At DC or during hospital stay patient has or had the following: CHF DIAGNOSIS No Discharge Core Measures Meds if any: Prescribed or Continued at Discharge Meds if any: NOT Prescribed or Continued at Discharge Cerebrovascular accident Inclusion Criteria At DC or during hospital stay patient has or had the following: CVA/TIA Diagnosis No Discharge Core Measures Meds if any: Prescribed or Continued at Discharge Meds if any: NOT Prescribed or Continued at Discharge Venous thromboembolism Inclusion Criteria VTE Diagnosis No VTE Type NONE VTE Confirmed by (Test) NONE Discharge Core Measures - Per Current guidelines, there needs to be overlap - treatment for the first 5 days of Warfarin therapy. - If discharged on Warfarin prior to 5 days of - overlap therapy, the patient will need to be - assessed for post discharge needs including - *Post discharge parental anticoagulation - *Warfarin and/or parental anticoagulation education - *Follow up date to check INR post discharge At least 5 days overlap therapy as Inpatient No Meds if any: Prescribed or Continued at Discharge Note: Overlap Therapy is Warfarin and Anticoagulant Meds if any: NOT Prescribed or Continued at Discharge
--- NOTE | 2017-01-16 13:07 | Cons- Endocrinology ---
General Information and HPI Consulting Request Date of Consult: 01/16/17 Requested By: medical team Reason for Consult: Hypoglycemia Source of Information: patient, old records Exam Limitations: no limitations History of Present Illness: This 61-year-old male was admitted because of severe constipation and also anemia. He received a transfusion of packed cells. He states that his constipation was relieved by a suppository. The patient is on methadone at home. He was previously at [facility] and underwent some GI studies including colonoscopy which did not reveal any obstruction or mass. The patient states he has trouble swallowing because of previous surgery on his cervical spine. He has to use pured foods at home. This has altered his diet somewhat. The patient has a history of type 2 diabetes. He was on 14 units of Levemir twice a day along with sliding scale NovoLog which he used just twice a day before breakfast and before dinner. Filled his sugars have been somewhat low with a sugar yesterday morning of only 50 and his sugar this morning of 92 before breakfast. Allergies/Medications Allergies: Coded Allergies: acetaminophen (From TYLENOL-CODEINE) (NAUSEA 01/14/17) codeine (From TYLENOL-CODEINE) (NAUSEA 01/14/17) Home Med List: Cyclobenzaprine HCl 10 MG TABLET 1 TAB PO BID PRN RLS (Reported) Doxazosin Mesylate 8 MG TABLET 1 TAB PO QPM PROSTATE (Reported) Fluticasone Propionate 50 MCG/ACTUATION SPRAY.SUSP 2 SPRAY NASB PRN ALLERGIES (Reported) Furosemide (Lasix) 20 MG TABLET 1 TAB PO QAM DIURETIC (Reported) Hydroxyzine HCl 10 MG TABLET 1 TAB PO Q8P PRN ITCHING (Reported) Insulin Detemir (Levemir) 100 UNIT/ML VIAL 14 UNITS SC BID DM (Reported) Insulin Lispro (Humalog) 100 UNIT/ML VIAL DM (Reported) Lactulose 10 GRAM/15 ML SOLUTION 30 ML PO TID LIVER CIRRHOSIS (Reported) Adjust the dose to have three bowel movements per day Lisinopril 10 MG TABLET 1 TAB PO DAILY BP (Reported) Magnesium Oxide (Magnesium) 400 MG CAPSULE 1 CAP PO BID SUPPLEMENT (Reported) Methadone HCl 10 MG/ML ORAL.CONC 70 MG PO DAILY MENTAL HEALTH (Reported) Mirabegron (Myrbetriq) 50 MG TAB.ER.24H 1 TAB PO DAILY BLADDER (Reported) Nitrofurantoin Monohyd/M-Cryst (Nitrofurantoin [place]-Mcr 100 MG) 100 MG CAPSULE 1 CAP PO DAILY ANTIBIOTIC (Reported) Psyllium Husk (Metamucil) (Unknown Strength) CAPSULE (Unknown Dose) PO BID GI (Reported) Sennosides/Docusate Sodium (Senokot-S Tablet) 8.6 MG-50 MG TABLET 1 TAB PO TID GI (Reported) Spironolactone 100 MG TABLET 1 TAB PO BID BP (Reported) Trazodone HCl 100 MG TABLET 1 TAB PO QPM SLEEP (Reported) Past History Travel History Traveled to [place] past 21 day No Medical History Blood Transfusion Hx: Yes Neurological: restless leg syndrome EENT: NONE Cardiovascular: hypertension, PVD Respiratory: NONE Gastrointestinal: NONE Hepatic: cirrhosis, hepatitis C Renal: NONE Musculoskeletal: degen joint disease Psychiatric: chronic pain disorder, opioid dependence Endocrine: diabetes Blood Disorders: anemia Surgical History Surgical History: hernia repair x2 lumbar discectomy cervical spinal fusion prostate laser surgery Family History Relations & Conditions If Any: MOTHER, ; Cause: Cancer. FH: cancer Peripheral vascular disease FATHER, ; Cause: Heart attack. Psychosocial History Where Do You Live? Home Who Do You Live With? spouse Services at Home: None Primary Language: Welsh Smoking Status: Current Everyday Smoker (Smokes 1/2 PPD) ETOH Use: denies use Illicit Drug Use: denies illicit drug use (hx of IVDU - quit 35 years ago) Functional Ability ADLs Independent: dressing, eating, toileting, bathing. Ambulation: cane IADLs Independent: shopping, housework, finances, food prep, telephone, transportation , medication admin. Exam & Diagnostic Data Last 24 Hrs of Vital Signs/I&O Vital Signs Date Time Temp Pulse Resp B/P B/P Pulse O2 O2 Flow FiO2 Mean Ox Delivery Rate 01/16 617 97.9 59 20 152/80 99 01/15 2241 98.4 66 20 140/70 99 Room Air 01/15 1449 97.4 69 18 140/66 99 01/15 1425 Room Air Intake & Output 01/16 1600 01/16 0800 01/16 0000 Intake Total Output Total 350 550 525 Balance -350 -550 -525 Output, Urine 350 550 525 Vital Signs Date Time Temp Pulse Resp B/P B/P Pulse O2 O2 Flow FiO2 Mean Ox Delivery Rate 06/19 0617 97.9 59 20 152/80 99 01/15 2241 98.4 66 20 140/70 99 Room Air 01/15 1449 97.4 69 18 140/66 99 01/15 1425 Room Air Intake & Output 01/16 1600 01/16 0800 01/16 0000 Intake Total Output Total 350 550 525 Balance -350 -550 -525 Output, Urine 350 550 525 Labs/Jeffy Results: Laboratory Tests 01/16 0710 Chemistry Sodium (137 - 145 mmol/L) 138 Potassium (3.5 - 5.1 mmol/L) 5.3 H Chloride (98 - 107 mmol/L) 102 Carbon Dioxide (22 - 30 mmol/L) 28 Anion Gap (5 - 16) 8 BUN (9 - 20 mg/dL) 15 Creatinine (0.7 - 1.2 mg/dL) 1.0 Estimated GFR (>60 ml/min) > 60 BUN/Creatinine Ratio (7 - 25 %) 15.0 Calcium (8.4 - 10.2 mg/dL) 9.3 Phosphorus (2.5 - 4.5 mg/dL) 3.4 Total Bilirubin (0.2 - 1.3 mg/dL) 0.7 Direct Bilirubin (< 0.4 mg/dL) 0.4 AST (17 - 59 U/L) 26 ALT (21 - 72 U/L) 40 Alkaline Phosphatase (< 127 U/L) 62 Total Protein (6.3 - 8.2 g/dL) 6.8 Albumin (3.5 - 5.0 g/dL) 3.4 L 25-OH Vitamin D Total (30 - 100 ng/ml) 20.4 L Hematology CBC w Diff NO MAN DIFF REQ WBC (4.8 - 10.8 /CUMM) 3.1 L RBC (4.70 - 6.10 /CUMM) 3.79 L Hgb (14.0 - 18.0 G/DL) 9.9 L Hct (42 - 52 %) 30.1 L MCV (80.0 - 94.0 FL) 79.3 L MCH (27.0 - 31.0 PG) 26.3 L RDW (11.5 - 14.5 %) 16.6 H Plt Count (130 - 400 /CUMM) 85 L MPV (7.4 - 10.4 FL) 8.0 Gran % (42.2 - 75.2 %) 67.3 Lymphocytes % (20.5 - 51.1 %) 14.8 L Monocytes % (1.7 - 9.3 %) 13.9 H Eosinophils % (0 - 5 %) 3.0 Basophils % (0.0 - 2.0 %) 1.0 Absolute Granulocytes (1.4 - 6.5 /CUMM) 2.1 Absolute Lymphocytes (1.2 - 3.4 /CUMM) 0.5 L Absolute Monocytes (0.10 - 0.60 /CUMM) 0.4 Absolute Eosinophils (0.0 - 0.7 /CUMM) 0.1 Absolute Basophils (0.0 - 0.2 /CUMM) 0 PUBS MCHC (33.0 - 37.0 G/DL) 33.1 Assessment/Plan Assessment/Plan This patient has a history of type 2 diabetes mellitus. His sugars have been low before breakfast in the morning. He has required very little coverage with NovoLog. I suggest reducing his Levemir to 10 units twice a day. NovoLog sliding scale before meals could be adjusted to less than 100 give no insulin, 101-150 give 2 units NovoLog, 151-200 give 2 units NovoLog, 201-250 give 3 units NovoLog, 251- 300 give 3 units NovoLog, 301-350 give 4 units NovoLog, 351-400 give 4 units NovoLog. Consult Acknowledgment - Thank you for your consult request.
[2017-01-16 14:33] VITALS: BP 122/78
[2017-01-16] MEDS ORDERED: VITAMIN D3400 UNI1 PO (20:47)
[2017-01-16] MEDS ORDERED: MIRALAX119 GM PO (20:47)
[2017-01-16] MEDS ORDERED: LEVEMIR100 UNIT/1 SC (20:53)
[2017-01-16] MEDS ORDERED: HUMALOG100 UNIT/2 SC (20:53)
[2017-01-16 23:04] VITALS: BP 154/75
[2017-01-17 06:30] VITALS: BP 141/68
--- NOTE | 2017-01-17 07:12 | PN- Housestaff ---
NELA COX,ETHAN 01/17/17 0712: Subjective Follow-up For: Constipation, Anemia Complaints: no complaints Subjective: I followed up and examined the patient today. He was resting comfortably in bed , not in distress. He had last bowel movement last night, which was semi-formed , was not red/black and did not have blood in it grossly. He is eager to go home today. Review of Systems Constitutional: Reports: no symptoms. Objective Last 24 Hrs of Vital Signs/I&O Vital Signs Date Time Temp Pulse Resp B/P B/P Pulse O2 O2 Flow FiO2 Mean Ox Delivery Rate 01/17 0944 138/88 01/17 0630 98.1 63 20 141/68 98 Room Air 01/17 0000 Room Air 01/16 2304 99.0 64 20 154/75 93 Room Air 01/16 1438 72 137/70 01/16 1433 98.8 73 20 122/78 100 Room Air Intake & Output 01/17 1600 01/17 0800 01/17 0000 Intake Total 480 480 Output Total 300 Balance 180 480 Intake, Oral 480 480 Number 1 Bowel Movements Output, Urine 300 Physical Exam General Appearance: Alert, Oriented X3, Cooperative, No Acute Distress Other Physical Findings: Skin: No Rashes HEENT: Atraumatic, PERRLA, EOMI, Mucous Membr. moist/pink Neck: Supple, No JVD Cardiovascular: Regular Rate, Normal S1, Normal S2, No Murmurs Lungs: Clear to Auscultation, Normal Air Movement Abdomen: Normal Bowel Sounds, Soft, No Tenderness, Distended (less than on admission per patient) Neurological: Normal Gait, Normal Speech, grossly intact Extremities: Normal Pulses, venous stasis vascular changes inc b/l darkening of skin, +1 LE edema BL Current Medications: Current Medications Sig/Quinton Start time Last Medication Dose Route Stop Time Status Admin Cholecalciferol 800 IU DAILY 01/16 1207 DCD 01/17 PO 0944 Cyclobenzaprine HCl 10 MG BID PRN 01/14 2215 DCD PO Docusate Sodium 100 MG DAILY 01/15 1000 DCD 01/17 PO 0943 Doxazosin Mesylate 8 MG QPM 01/15 2200 DCD 01/16 PO 2139 Furosemide 20 MG QAM 01/15 1000 DCD 01/17 PO 0943 Hydroxyzine HCl 10 MG DAILY NEEDED PRN 01/14 2215 DCD PO Insulin Aspart 0 TIDAC 01/16 1700 DCD 01/17 SC 1135 Insulin Detemir 10 UNITS BID 01/16 2200 DCD 01/17 SC 0944 Lactulose 10 GM TID 01/15 1000 DCD 01/17 PO 0938 Lisinopril 10 MG DAILY 01/17 1000 DCD 01/17 PO 0944 Lisinopril 10 MG ONCE ONE 01/16 1445 DC 01/16 PO 01/16 1446 1438 Magnesium Oxide 400 MG BID 01/15 1000 DCD 01/17 PO 0943 Methadone HCl 70 MG ONCE ONE 01/17 1100 DC 01/17 PO 01/17 1101 1129 Mirabegron 50 MG DAILY 01/15 1000 DCD 01/17 PO 0943 Polyethylene Glycol 17 GM DAILY 01/15 1000 DCD 01/17 PO 0940 Senna/Docusate Sodium 1 TAB TID 01/15 1000 DCD 01/17 PO 0944 Spironolactone 100 MG BID 01/15 1000 DCD 01/17 PO 0943 Trazodone HCl 100 MG QPM 01/14 2215 DCD 01/16 PO 2139 Last 24 Hrs of Lab/Jeffy Results Last 24 Hrs of Labs/Mics: Laboratory Tests 01/17/17 0650: Anion Gap 7, Estimated GFR > 60, BUN/Creatinine Ratio 15.5, CBC w Diff NO MAN DIFF REQ, RBC 3.97 L, MCV 80.3, MCH 26.0 L, RDW 17.8 H, MPV 7.9, Gran % 62.8, Lymphocytes % 19.7 L, Monocytes % 13.6 H, Eosinophils % 3.4, Basophils % 0.5, Absolute Granulocytes 2.1, Absolute Lymphocytes 0.7 L, Absolute Monocytes 0.5, Absolute Eosinophils 0.1, Absolute Basophils 0, PUBS MCHC 32.4 L Assessment/Plan Assessment: Mr. Cedillo is a 61 y/o M with PMHx of HCV cirrhosis, PVD and insulin- dependent T2DM who presents with constipation, found to be anemic with H/H of 7.7/23. #Acute on chronic microcytic anemia: Iron studies with low iron and normal TIBC and ferritin consistent with mixed iron deficiency anemia and anemia of chronic disease. RPI 0.99% suggesting inadequate bone marrow response, likely secondary to bone marrow suppression from HCV cirrhosis. No evidence of acute blood loss including hematemesis, melena or BRBPR. Recent colonoscopy at [facility] was negative. Last EGD, 1 year ago, was unrevealing. Positive orthostatics on admission, which later resolved, but no other symptoms associated with anemia including chest pain, palpitations or shortness of breath. * Hematology consultation placed, appreciate recommendation * H&H 10.3/31.8, status post transfuse 1 unit of pRBCs. * Guaiac stool negative 2 * Started on Iron supplement #Constipation: Of unclear etiology but possibly related to methadone use. CT Abdomen/Pelvis with marked constipation but no bowel obstruction. Recent workup at [facility] including colonoscopy negative. Takes psyllium and Senokot-S as outpatient. * Aggressive bowel regimen with scheduled Miralax, Senokot-S and Colace. * Patient had 4 bowel movements on Monday and one on Monday. * Will continue the bowel regimen. #HCV cirrhosis: No evidence of decompensated cirrhosis. * Continue jatkl-bt-usjpebvhm lactulose 10 mg PO TID to titrate to three bowel movements per day. No more no less. * ALPs for DVT PPx. No pharmacologic anticoagulation in the setting of thrombocytopenia. * Patient will require DEXA scan as an outpatient basis due to his history of low vitamin D, and chronic liver disease/cirrhosis. * Patient has been advised for low sodium high protein diet for cirrhotic patient. He mentioned that he has been avoiding high sodium since last 10 years. He is agreeable to the plan. #Right pleural effusion: CT Abdomen/Pelvis with small right pleural effusion consistent with atelectasis vs. infiltrate. Patient is comfortable and satting well on room air and denies cough. * TRC and nebs as necessary. * Encourage incentive spirometry. #IDDM: On Levemir and lispro. * Continue the decreased Levemir and Novolog dose per Dr Dick. * Continue Accu-checks TID/AC and HS. * Nutrition consultation appreciated who suggested diet advice to the patient as well as the familly. #HTN: * Continue [id number]-fv-gsguxllri lisinopril 20 mg PO QAM, spironolactone 100 mg PO BID #Opioid dependence: Maintained on methadone 70 mg PO daily from [facility]. * Contiue methadone 70 mg by mouth daily. * Confirmation of methadone dose from [facility] done on Monday01/16/[address] Carter. #BPH: * Continue ecgai-ql-ghfwdbyds doxazosin 8 mg PO QPM and mirabegron 50 mg PO daily. #Restless leg syndrome: * Continue tmrwv-mm-jvgixrdfj Flexeril 10 mg PO BID PRN. Discharge disposition: Patient's condition has improved since getting admitted. He no longer has anemia or constipation. However he will require follow-up with a GI doctor, a entry level software engineer, and his primary care physician. He understands the situation and agrees to plan. He can be safely discharged to home with the above-mentioned care plan. Diet: Consistent Carbohydrate 3 - Mechanical soft/ground and thin liquids with low sodium and high protein. Ibuprofen was removed for pain given his liver condition. DVT PPx: ALPs CODE: FULL Patient's medication was confirmed, a list of his medication sheet is in the chart. Problem List: 1. Constipation 2. Anemia 3. Cirrhosis 4. Thrombocytopenia 5. Uncontrolled diabetes mellitus 6. Vitamin D deficiency Pain Ratin Pain Location: - Pain Goal: Remain pain free Pain Plan: prn Tomorrow's Labs & Rationales: - GAIL COX,NANDINI 01/17/17 1148: Attending MD Review Statement Attending Statement Attending MD Statement: examined this patient, discuss w/resident/PA/GLOBAL ACCOUNT DIRECTOR, agreed w/resident/PA/GLOBAL ACCOUNT DIRECTOR, reviewed EMR data (avail), discussed with nursing, discussed with case mgmt, reviewed images, amended to note Attending Assessment/Plan: Patient seen and examined, feeling much better. Blood sugars are stabilized. H &H remained stable. Patient had a bowel movement last night. Patient is medically stable for discharge. Oncology recommends adding daily iron. We cannot identify to 25 mg by mouth daily to his regimen. Medically stable for discharge otherwise on a new insulin regimen and follow with Dr. Dick as an outpatient. Patient would like to follow with his primary care doctor as well as his risk specialist as an outpatient.
--- NOTE | 2017-01-17 07:53 | PN- Diabetes ---
Assessment/Plan Assessment: The patient feels good this morning. He states that he is eating well. We reduced his insulin yesterday. Plan: Suggest that if the patient goes home today can go home on the present insulin regimen. He will check his sugars at home or report them to the office and make a follow-up appointment Objective Last 24 Hrs of Vital Signs/I&O Vital Signs Date Time Temp Pulse Resp B/P B/P Pulse O2 O2 Flow FiO2 Mean Ox Delivery Rate 01/17 0630 98.1 63 20 141/68 98 Room Air 01/17 0000 Room Air 01/16 2304 99.0 64 20 154/75 93 Room Air 01/16 1438 72 137/70 01/16 1433 98.8 73 20 122/78 100 Room Air Intake & Output 01/17 0800 01/17 0000 01/16 1600 Intake Total 480 480 Output Total 550 Balance 480 480 -550 Intake, Oral 480 480 Number 1 Bowel Movements Output, Urine 550 Patient 157 lb Weight Vital Signs Date Time Temp Pulse Resp B/P B/P Pulse O2 O2 Flow FiO2 Mean Ox Delivery Rate 01/17 0630 98.1 63 20 141/68 98 Room Air 01/17 0000 Room Air 01/16 2304 99.0 64 20 154/75 93 Room Air 01/16 1438 72 137/70 01/16 1433 98.8 73 20 122/78 100 Room Air Intake & Output 01/17 0800 01/17 0000 01/16 1600 Intake Total 480 480 Output Total 550 Balance 480 480 -550 Intake, Oral 480 480 Number 1 Bowel Movements Output, Urine 550 Patient 157 lb Weight Current Medications: Current Medications Sig/Quinton Start time Last Medication Dose Route Stop Time Status Admin Amlodipine Besylate 10 MG DAILY 01/16 1116 DC PO Cholecalciferol 800 IU DAILY 01/16 1207 AC 01/16 PO 1315 Cyclobenzaprine HCl 10 MG BID PRN 01/14 2215 AC PO Docusate Sodium 100 MG DAILY 01/15 1000 AC 01/16 PO 1108 Doxazosin Mesylate 8 MG QPM 01/15 2200 AC 01/16 PO 2139 Furosemide 20 MG QAM 01/15 1000 AC 01/16 PO 1109 Hydroxyzine HCl 10 MG DAILY NEEDED PRN 01/14 2215 AC PO Ibuprofen 600 MG Q6P PRN 01/15 0245 DC PO Insulin Aspart 0 TIDAC 01/16 1700 AC SC Insulin Aspart 0 TIDAC 01/15 0800 DC 01/16 SC 1237 Insulin Detemir 10 UNITS BID 01/16 2200 AC 01/16 SC 2138 Insulin Detemir 14 UNITS BID 01/14 2203 DC 01/14 SC 2323 Ketorolac 15 MG Q6P PRN 01/15 0245 DC Tromethamine IV Lactulose 10 GM TID 01/15 1000 AC 01/16 PO 2139 Lisinopril 10 MG DAILY 01/17 1000 AC PO Lisinopril 10 MG ONCE ONE 01/16 1445 DC 01/16 PO 01/16 1446 1438 Lisinopril 10 MG DAILY 01/15 1000 DC 01/15 PO 1001 Magnesium Oxide 400 MG DAILY 01/16 1000 DC PO Magnesium Oxide 400 MG BID 01/15 1000 AC 01/16 PO 2138 Mirabegron 50 MG DAILY 01/15 1000 AC 01/16 PO 1108 Polyethylene Glycol 17 GM DAILY 01/15 1000 AC 01/16 PO 1443 Senna/Docusate Sodium 1 TAB TID 01/15 1000 AC 01/16 PO 1723 Spironolactone 100 MG BID 01/15 1000 AC 01/16 PO 2139 Trazodone HCl 100 MG QPM 01/14 2215 AC 01/16 PO 2139 Findings Pertinent Lab/Jeffy Results: Laboratory Tests 01/17 0650 Chemistry Sodium Pending Potassium Pending Chloride Pending Carbon Dioxide Pending Anion Gap Pending BUN Pending Creatinine Pending BUN/Creatinine Ratio Pending Hematology CBC w Diff Pending WBC Pending RBC Pending Hgb Pending Hct Pending MCV Pending MCH Pending RDW Pending Plt Count Pending MPV Pending PUBS MCHC Pending
[2017-01-17 08:23] LABS: ABSOLUTE BASOPHIL COUNT 0 /CUMM (0.0-0.2); ABSOLUTE EOSINOPHIL COUNT 0.1 /CUMM (0.0-0.7); ABSOLUTE GRANULOCYTE CT 2.1 /CUMM (1.4-6.5); ABSOLUTE LYMPH COUNT 0.7 /CUMM (1.2-3.4); ABSOLUTE MONOCYTE COUNT 0.5 /CUMM (0.10-0.60); BASOPHIL % 0.5 % (0.0-2.0); EOSINOPHIL % 3.4 % (0-5); GRANULOCYTE % 62.8 % (42.2-75.2); HEMATOCRIT 31.8 % (42-52); MEAN CORPUSCULAR HGB CONC 32.4 G/DL (33.0-37.0); MEAN CORPUSCULAR VOLUME 80.3 FL (80.0-94.0); MEAN PLATELET VOLUME 7.9 FL (7.4-10.4); PLATELET COUNT 103 /CUMM (130-400); RBC DISTRIBUTION WIDTH 17.8 % (11.5-14.5); RED BLOOD CELL CT 3.97 /CUMM (4.70-6.10); WHITE BLOOD CELL COUNT 3.3 /CUMM (4.8-10.8)
--- NOTE | 2017-01-17 09:42 | PN- Hematology ---
Subjective Subjective: He feels better. He denies any new symptoms. He has no fever or chills. He is moving his bowel. Energy level is good. Review of Systems Constitutional: Denies: chills, fever. Cardiovascular: Denies: chest pain. Gastrointestinal: Reports: constipation. Denies: abdominal pain. Genitourinary: Denies: dysuria. Musculoskeletal: Reports: back pain. Neurological/Psychological: Denies: confusion. All Other Systems: Reviewed and Negative Objective Vital Signs and I&Os Vital Signs Date Time Temp Pulse Resp B/P B/P Pulse O2 O2 Flow FiO2 Mean Ox Delivery Rate 01/17 0630 98.1 63 20 141/68 98 Room Air 01/17 0000 Room Air 01/16 2304 99.0 64 20 154/75 93 Room Air 01/16 1438 72 137/70 01/16 1433 98.8 73 20 122/78 100 Room Air Intake & Output 01/17 1600 01/17 0800 01/17 0000 01/16 1600 01/16 0800 01/16 0000 Intake Total 480 480 Output Total 300 550 550 525 Balance 180 480 -550 -550 -525 Intake, Oral 480 480 Number 1 Bowel Movements Output, Urine 300 550 550 525 Patient 71.214 kg Weight Physical Exam: General Appearance: well developed/nourished, no apparent distress, alert, awake , comfortable, thin Respiratory: normal breath sounds, chest non-tender, quiet respiration Cardiovascular: regular rate/rhythm, edema, systolic murmur Gastrointestinal: soft, non-tender, distention, hypoactive bowel sounds, splenomegaly Extremities: 1+edema BLE, hyperpigmented lower extremities Neurologic/Psych: awake, alert, oriented x 3, abnormal gait (slow, unsteady) Skin: ecchymosis (bilateral upper extremity) Current Medications: Current Medications Sig/Quinton Start time Last Medication Dose Route Stop Time Status Admin Amlodipine Besylate 10 MG DAILY 01/16 1116 DC PO Cholecalciferol 800 IU DAILY 01/16 1207 AC 01/16 PO 1315 Cyclobenzaprine HCl 10 MG BID PRN 01/14 2215 AC PO Docusate Sodium 100 MG DAILY 01/15 1000 AC 01/16 PO 1108 Doxazosin Mesylate 8 MG QPM 01/15 2200 AC 01/16 PO 2139 Furosemide 20 MG QAM 01/15 1000 AC 01/16 PO 1109 Hydroxyzine HCl 10 MG DAILY NEEDED PRN 01/14 2215 AC PO Insulin Aspart 0 TIDAC 01/16 1700 AC SC Insulin Aspart 0 TIDAC 01/15 0800 DC 01/16 SC 1237 Insulin Detemir 10 UNITS BID 01/16 2200 AC 01/16 SC 2138 Insulin Detemir 14 UNITS BID 01/14 2203 DC 01/14 SC 2323 Lactulose 10 GM TID 01/15 1000 AC 01/16 PO 2139 Lisinopril 10 MG DAILY 01/17 1000 AC PO Lisinopril 10 MG ONCE ONE 01/16 1445 DC 01/16 PO 01/16 1446 1438 Lisinopril 10 MG DAILY 01/15 1000 DC 01/15 PO 1001 Magnesium Oxide 400 MG DAILY 01/16 1000 DC PO Magnesium Oxide 400 MG BID 01/15 1000 AC 01/16 PO 2138 Mirabegron 50 MG DAILY 01/15 1000 AC 01/16 PO 1108 Polyethylene Glycol 17 GM DAILY 01/15 1000 AC 01/16 PO 1443 Senna/Docusate Sodium 1 TAB TID 01/15 1000 AC 01/16 PO 1723 Spironolactone 100 MG BID 01/15 1000 AC 01/16 PO 2139 Trazodone HCl 100 MG QPM 01/14 2215 AC 01/16 PO 2139 Results Last 24 Hours of Lab Results: Laboratory Tests 01/17 0650 Chemistry Sodium (137 - 145 mmol/L) 138 Potassium (3.5 - 5.1 mmol/L) 5.5 H Chloride (98 - 107 mmol/L) 101 Carbon Dioxide (22 - 30 mmol/L) 30 Anion Gap (5 - 16) 7 BUN (9 - 20 mg/dL) 17 Creatinine (0.7 - 1.2 mg/dL) 1.1 Estimated GFR (>60 ml/min) > 60 BUN/Creatinine Ratio (7 - 25 %) 15.5 Hematology CBC w Diff NO MAN DIFF REQ WBC (4.8 - 10.8 /CUMM) 3.3 L RBC (4.70 - 6.10 /CUMM) 3.97 L Hgb (14.0 - 18.0 G/DL) 10.3 L Hct (42 - 52 %) 31.8 L MCV (80.0 - 94.0 FL) 80.3 MCH (27.0 - 31.0 PG) 26.0 L RDW (11.5 - 14.5 %) 17.8 H Plt Count (130 - 400 /CUMM) 103 L MPV (7.4 - 10.4 FL) 7.9 Gran % (42.2 - 75.2 %) 62.8 Lymphocytes % (20.5 - 51.1 %) 19.7 L Monocytes % (1.7 - 9.3 %) 13.6 H Eosinophils % (0 - 5 %) 3.4 Basophils % (0.0 - 2.0 %) 0.5 Absolute Granulocytes (1.4 - 6.5 /CUMM) 2.1 Absolute Lymphocytes (1.2 - 3.4 /CUMM) 0.7 L Absolute Monocytes (0.10 - 0.60 /CUMM) 0.5 Absolute Eosinophils (0.0 - 0.7 /CUMM) 0.1 Absolute Basophils (0.0 - 0.2 /CUMM) 0 PUBS MCHC (33.0 - 37.0 G/DL) 32.4 L Assessment/Plan Assessment/Recommendations: Mr. Cedillo is a 61-year-old male with HCV cirrhosis, PVD, DM, and spinal stenosis who presented to the hospital with abdominal pain, constipation, and anemia. He has a recent colonoscopy per the patient. His last EGD was a year ago. He sees Dr. Villatoro of GI. Mr. Cedillo reports no bleeding issues. Blood work during admission demonstrated normal vitamin B12, normal folate, low serum iron, normal TIBC, and normal ferritin. He has pancytopenia. Anemia is likely of chronic disease. There may be component of iron deficiency. He has splenomegaly which will also contribute with sequestration. Anemia is improving. He will need further GI evaluation by his outpatient GI physician. He should have stool occult blood evaluation, EGD, and review of previous colonoscopy records. Recommendations: 1. Evaluate for GI bleeding: stool occult blood, EGD, obtain colonoscopy records 2. Check AFP and US liver or CT with contrast, may be done as outpatient 3. Consider iron supplement daily as tolerated 4. Follow up as outpatient Please call [phone] with any new questions or concerns. Problem List: 1. Anemia 2. Thrombocytopenia 3. Cirrhosis 4. Splenomegaly
[2017-01-17 09:44] VITALS: BP 138/88
[2017-01-17] MEDS ORDERED: FERROUS SULFAT325 M3 PO (11:52)
[2017-01-17] MEDS ORDERED: LEVEMIR100 UNIT/1 SC (11:55)
[2017-01-17] MEDS ORDERED: VITAMIN D3400 UNI1 PO (11:55)
[2017-01-17] MEDS ORDERED: HUMALOG100 UNIT/2 SC (11:55)
[2017-01-17] MEDS ORDERED: MIRALAX119 GM PO (11:55)
--- NOTE | 2017-01-17 13:26 | Discharge Summary ---
Visit Information Visit Dates Admission Date: 01/16/17 Discharge Date: 01/17/2017 Hospital Course Course Attending Physician: NANDINI REYNOLDS MD Primary Care Physician: MICHELLE PAL MD Hospital Course: Mr. Cedillo is a 61 y/o pleasant gentleman with PMHx of HCV cirrhosis, PVD and insulin-dependent T2DM who presented to the ED with conplaints of constipation and was incidentally also found to be anemic with H/H of 7.7/23. He was managed in the general medical floor for the following issues: #Constipation: Of unclear etiology but possibly related to methadone use. CT Abdomen/Pelvis with marked constipation but no bowel obstruction. Recent workup at [facility] including colonoscopy negative. Takes psyllium and Senokot-S as outpatient. Aggressive bowel regimen with scheduled Miralax, Senokot-S and Colace was given, to which he responded. Patient was discharged with dietary advice, and Miralax while continuing his regular medications. Patient, as well as his , have been explained about the bowel regimen, with a target of 3 bowel movements per day. #Acute on chronic microcytic anemia: Iron studies with low iron and normal TIBC and ferritin was consistent with mixed iron deficiency anemia and anemia of chronic disease. RPI 0.99% suggesting inadequate bone marrow response, likely secondary to bone marrow suppression from HCV cirrhosis. No evidence of acute blood loss including hematemesis, melena or BRBPR. Recent colonoscopy at [facility] was negative. Last EGD, 1 year ago, was unrevealing. Positive orthostatics on admission, which later resolved, but no other symptoms associated with anemia including chest pain, palpitations or shortness of breath. Stool Guiac was negative. Hematology consultation placed, who suggested iron replacement, and tests that can be done as an out patient, such as AFP and US liver or CT with contrast, and a regular follow up. #IDDM: He is normally on Levemir and lispro at home. His blood sugar was running low multiple times, despite eating regularly/not skipping meals. Felicita Dick MD is his field investigator, who was consulted and his long-acting insulin Levemir dose was reduced to 10 units twice a day, and NovoLog sliding scale was reduced as well. Of note NovoLog in hospital and Humalog at home is 1:1 conversion scale, thus the patient was discharged on equivalent dose. Nutrition consultation appreciated who suggested diet advice to the patient as well as the familly. Other issues/co-morbidities managed: #HCV cirrhosis: No evidence of decompensated cirrhosis. Continued home dose of lactulose 10 mg per oral 3 times a day. Patient has a office services assistant, with whom he would like to have regular follow-ups. Patient will require DEXA scan as an outpatient basis due to his history of low vitamin D, and chronic liver disease/cirrhosis. Patient has been advised for low sodium high protein diet for cirrhotic patient. He mentioned that he has been avoiding high sodium since last 10 years. He is agreeable to the plan. #Thrombocytopenia: His platelet count was 98 on presentation, which remained low until January 17 at 103. This is probably due to his long-standing liver disease. Anticoagulants, heparin, antiplatelets were avoided during this stay. #Right pleural effusion: CT Abdomen/Pelvis with small right pleural effusion consistent with atelectasis vs. infiltrate. Patient is comfortable and satting well on room air and denies cough. TRC/nebs was continued, and incentive spirometry was provided. Respiratory status was not a problem for him. #HTN: Home medication of Lisinopril 20 mg PO QAM, and spironolactone 100 mg PO BID was continued. No issues with BP. #Opioid dependence: Maintained on methadone 70 mg PO daily from [facility] which was confirmed and continued during his stay. #BPH: Home medication of Doxazosin 8 mg PO QPM and mirabegron 50 mg PO daily was continued. #Restless leg syndrome: Home medication of Flexeril 10 mg PO BID PRN was continued. Diet: Consistent Carbohydrate 3 - Mechanical soft/ground and thin liquids with low sodium and high protein. Adequate analgesia was provided, avoiding NSAIDs. DVT prophylaxis was provided mechanically. He holds a FULL CODE status. Allergies: Coded Allergies: acetaminophen (From TYLENOL-CODEINE) (NAUSEA 01/14/17) codeine (From TYLENOL-CODEINE) (NAUSEA 01/14/17) Pertinent Lab Results: CT abd/pelvis: 01/14/17: IMPRESSION: 1. There is marked constipation. No teodoro bowel obstruction is seen. There is no appendicitis or diverticulitis. No free intraperitoneal air or abscess is seen. 2. There is cholelithiasis, without CT finding to suggest cholecystitis. 3. There is mild free fluid in the lower pelvis and upper abdomen. 4. A small right pleural effusion is seen, and there is mild medial right base linear atelectasis. There is mild left base atelectasis versus infiltrate, with air bronchograms. 5. There is splenomegaly. 6. There is degenerative disc disease at L5-S1. DICTATED BY: LEE ANN MENA MD DATE/TIME DICTATED:01/14/171633 COMMUNITY HE[employer] PLANNING DIRECTOR:AMILCAR DATE/TIME TRANSCRIBED:01/14/171633 At discharge, patient's H/H was 10.3/31.8. Disposition Summary Disposition Principal Diagnosis: Constipation; Anemia Additional Diagnosis: HCV cirrhosis, PVD and insulin-dependent T2DM Discharge Disposition: home or self care Discharge Instructions General Discharge Information Code Status: Full Code Patient's Diet: Diabetic diet with 2gm Sodium restriction, and high protein. Patient's Activity: As tolerated Follow-Up Instructions/Appts: #1 Please follow up with Gastroentrologist within one week . #2 Please follow up with [facility] The [facility]aired within 1-2 weeks after discharge . #3 Please adjust the dose of Lactulose to make sure that you have three bowel miovements in a day. #4 Please avoid NSAIDs, narcotics and benzodiazepine. #5 Please follow a salt restricted diet of less than 2 gm a day. #6 Follow up with your PCP and keep; Ensure updating your Influenza Vaccine and Pneumonia Vaccine PPSV23. #7 Please follow up with your PCP with the results of the DEXA test Please return to emergency room if symptoms worsen. Medications at Discharge Discharge Medications: Stop taking the following medications: Insulin Detemir (Levemir) 100 UNIT/ML VIAL Inject into fatty tissue TWICE DAILY Qty = 10 Continue taking these medications: Nitrofurantoin Monohyd/M-Cryst (Nitrofurantoin [place]-Mcr 100 MG) 100 MG CAPSULE 1 Capsule ORAL DAILY Qty = 17 Spironolactone (Spironolactone) 100 MG TABLET 1 Tablet ORAL TWICE DAILY Qty = 60 Comments: last given 01/17/17 @ 0930 Hydroxyzine HCl (Hydroxyzine HCl) 10 MG TABLET 1 Tablet ORAL EVERY 8 HOURS NEEDED as needed for ITCHING Qty = 90 Doxazosin Mesylate (Doxazosin Mesylate) 8 MG TABLET 1 Tablet ORAL Every night Qty = 30 Comments: last given 01/16/17 @ 2100 Trazodone HCl (Trazodone HCl) 100 MG TABLET 1 Tablet ORAL Every night Qty = 30 Comments: last given 01/17/17 @ 2130 Methadone HCl (Methadone HCl) 10 MG/ML ORAL.CONC 70 Milligram ORAL DAILY Comments: last given 01/17/17 @ 1130 Fluticasone Propionate (Fluticasone Propionate) 50 MCG/ACTUATION SPRAY.SUSP 2 [place] Both sides of nose as needed for ALLERGIES Qty = 16 Lisinopril (Lisinopril) 10 MG TABLET 1 Tablet ORAL DAILY Qty = 90 Comments: last given 01/17/17 @ 0930 Mirabegron (Myrbetriq) 50 MG TAB.ER.24H 1 Tablet ORAL DAILY Qty = 30 Comments: last given 01/17/17 @ 0930 Cyclobenzaprine HCl (Cyclobenzaprine HCl) 10 MG TABLET 1 Tablet ORAL TWICE DAILY as needed for RLS Days = 30 Psyllium Husk (Metamucil) (Unknown Strength) CAPSULE Unknown Dose ORAL TWICE DAILY Magnesium Oxide (Magnesium) 400 MG CAPSULE 1 Capsule ORAL TWICE DAILY Comments: last given 01/17/17 @ 0930 Furosemide (Lasix) 20 MG TABLET 1 Tablet ORAL Every Morning Comments: last given 01/17/17 @ 0930 Sennosides/Docusate Sodium (Senokot-S Tablet) 8.6 MG-50 MG TABLET 1 Tablet ORAL THREE TIMES DAILY Lactulose (Lactulose) 10 GRAM/15 ML SOLUTION 30 Milliliters ORAL THREE TIMES DAILY Qty = 30 Instructions: Adjust the dose to have three bowel movements per day Comments: last given 01/17/17 @ 0930 Insulin Lispro (Humalog) 100 UNIT/ML VIAL 0 Inject into fatty tissue SEE INSTRUCTIONS Qty = 6 Instructions: . Comments: <100 NO INSULIN; 101-200: 2 UNIT; 201-300: 3 UNIT; 301-400: 4 UNIT; >400 CALL DOCTOR This prescription has been renewed Start taking the following new medications: Polyethylene Glycol 3350 (Miralax) 17 GRAM/DOSE POWDER 17 Gram ORAL DAILY as needed for CONSTIPATION Qty = 30 No Refills Instructions: TITRATE TO THREE BOWEL MOVEMENTS PER DAY. Comments: last given 01/17/17 @ 0930 Insulin Detemir (Levemir) 100 UNIT/ML VIAL 10 Units Inject into fatty tissue TWICE DAILY Qty = 6 No Refills Instructions: . Comments: last given 01/17/17 @ 0930 Cholecalciferol (Vitamin D3) (Vitamin D3) 400 UNIT TABLET 800 International Unit ORAL DAILY Qty = 30 No Refills Instructions: . Comments: last given 01/17/17 @ 0930 Ferrous Sulfate (Ferrous Sulfate) 325 MG (65 MG IRON) TABLET 1 Tablet ORAL TWICE DAILY Qty = 60 No Refills Copies To: DEMARCO COX,MICHELLE Sewell; JASON COX,FELICITA Blackmon; CINDI COX,[facility]
== END 2017-01-17 13:37 | DRG 812 ==
LOC: ERH 15:14 → ERHI 19:05 → 2NB 19:05 → ENRESERV 20:46 → ENTRNSPT 21:38 → 2NB 21:46 → CMPTRNSPT 22:08 → 2NB 01-16 13:31 → ENPENDDIS 01-17 11:15 → 2NB 01-17 13:37
PROVIDERS: Physician Assistant Medical; Preventive Medicine Public Health & General Preventive Medicine; Student in an Organized Health Care Education/Training Program; ADMIT Hospitalist
PROC: 30233N1 Transfusion of Nonautologous Red Blood Cells into Peripheral Vein, Percutaneous Approach (ICD-10-PCS; principal; 2017-01-14)
DX: D50.9 Iron deficiency anemia, unspecified (principal); D61.818 Other pancytopenia; J90 Pleural effusion, not elsewhere classified; E11.649 Type 2 diabetes mellitus with hypoglycemia without coma; D69.6 Thrombocytopenia, unspecified; E87.1 Hypo-osmolality and hyponatremia; E11.51 Type 2 diabetes mellitus with diabetic peripheral angiopathy without gangrene; F11.20 Opioid dependence, uncomplicated; B19.20 Unspecified viral hepatitis C without hepatic coma; K59.00 Constipation, unspecified; K74.69 Other cirrhosis of liver; R16.1 Splenomegaly, not elsewhere classified; Z79.4 Long term (current) use of insulin; I10 Essential (primary) hypertension; N40.0 Benign prostatic hyperplasia without lower urinary tract symptoms; G25.81 Restless legs syndrome; D63.8 Anemia in other chronic diseases classified elsewhere; M19.90 Unspecified osteoarthritis, unspecified site; Z98.1 Arthrodesis status; F17.210 Nicotine dependence, cigarettes, uncomplicated
CPT/HCPCS: 1255; 6040; 36415; 74176; 80307; 81003; 82436; 86920; 93005; 93010; 99291; G0378; P9016

== ENCOUNTER 2018-04-10 10:55 | Emergency (ER) | payer OTHER, MEDICARE ==
[~2018-04-10] VITALS: Ht 165.1 cm; Wt 64.0 kg
[~2018-04-10 10:55] MED LIST changes: +ALDACTONE50 M1 PO; +AUGMENTIN 875-1 EACH PO; +CYCLOBENZAPRINE10 M1 PO; +DOXAZOSIN MESYLA8 M1 PO; +FERROUS SULFAT325 M3 PO; +FLUTICASONE PRO16 GM NASB; +FUROSEMIDE40 M1 PO; +HUMALOG100 UNIT/2 SC; +HYDROXYZINE HCL10 M1 PO; +LACTULOSE10 GM/152 PO; +LACTULOSE10 GM/153 PO; +LASIX20 M1 PO; +LEVEMIR100 UNIT/1 SQ; +LISINOPRIL10 M1 PO; +MAGNESIUM400 M1 PO; +METAMUCIL0.4 GM PO; +METHADONE HCL10 M1 PO; +METHADONE10 MG/1 M2 PO; +MIRALAX119 GM PO; +MYRBETRIQ50 M1 PO; +NICOTINE PATCH1 EAC2 TOP; +NITROFURANTOIN100 M6 PO; +SENOKOT-S TABL1 EACH PO; +SPIRONOLACTONE100 M1 PO; +TRAMADOL HCL50 M1 PO; +TRAZODONE HCL100 M1 PO; +VITAMIN D3400 UNI1 PO
[2018-04-10 11:28] LABS: ABSOLUTE BASOPHIL COUNT 0 /CUMM (0.0-0.2); ABSOLUTE EOSINOPHIL COUNT 0.1 /CUMM (0.0-0.7); ABSOLUTE GRANULOCYTE CT 2.5 /CUMM (1.4-6.5); ABSOLUTE LYMPH COUNT 0.3 /CUMM (1.2-3.4); ABSOLUTE MONOCYTE COUNT 0.2 /CUMM (0.10-0.60); BASOPHIL % 0.3 % (0.0-2.0); EOSINOPHIL % 1.7 % (0-5); GRANULOCYTE % 82.7 % (42.2-75.2); HEMATOCRIT 31.8 % (42-52); MEAN CORPUSCULAR HGB 27.4 PG (27.0-31.0); MEAN CORPUSCULAR HGB CONC 33.8 G/DL (33.0-37.0); MEAN CORPUSCULAR VOLUME 81.2 FL (80.0-94.0); MEAN PLATELET VOLUME 8.3 FL (7.4-10.4); PLATELET COUNT 75 /CUMM (130-400); RBC DISTRIBUTION WIDTH 17.8 % (11.5-14.5); RED BLOOD CELL CT 3.91 /CUMM (4.70-6.10); WHITE BLOOD CELL COUNT 3.1 /CUMM (4.8-10.8)
--- NOTE | 2018-04-10 12:39 | RADIOLOGY REPORT ---
EXAMINATION: CR ABDOMEN MULTIPLE VIEWS CLINICAL INDICATION: Constipation. Passing minimal amounts of small hard stool. COMPARISON: CT scan of the abdomen and pelvis dated 01/14/2017. TECHNIQUE: 2 views of the abdomen. FINDINGS: Large amount of fecal material is seen throughout the colon and rectum. No abnormal distention of small bowel loops is seen to suspect a bowel obstruction. No free air is noted. Included lung bases are unremarkable. Cardiac silhouette is enlarged. Left hip compression screw is partially imaged with heterotopic bone formation seen about the greater trochanter, consistent with postoperative changes. Mild degenerative changes and convex right thoracolumbar scoliosis are seen in the lower lumbar spine. Atherosclerotic vascular calcifications are seen in the pelvis and right groin. IMPRESSION: Findings are consistent with clinical history of constipation. No evidence of bowel obstruction or perforation.
[2018-04-10] MEDS ORDERED: DUCODYL5 M1 PO ×2 (13:29→13:49)
[2018-04-10] MEDS ORDERED: BISCOLAX10 M1 PR ×2 (13:29→13:49)
--- NOTE | 2018-04-10 13:31 | ED GENERAL ADULT ---
History of Present Illness General Chief Complaint: Abdominal Pain/Flank Pain Stated Complaint: CONSTIPATION Source: patient, family Exam Limitations: no limitations Vital Signs & Intake/Output Vital Signs & Intake/Output Vital Signs Date Time Temp Pulse Resp B/P B/P Pulse O2 O2 Flow FiO2 Mean Ox Delivery Rate 04/10 1333 Room Air Room Air 04/10 1058 97.1 69 20 152/75 97 Room Air Allergies Coded Allergies: acetaminophen (From TYLENOL-CODEINE) (NAUSEA 01/14/17) codeine (From TYLENOL-CODEINE) (NAUSEA 01/14/17) Reconcile Medications Amoxicillin/Potassium Clav (Augmentin 875-125 Tablet) 875 MG-125 MG TABLET 1 TAB PO BID cellulitis Bisacodyl (Ducodyl) 5 MG TABLET.DR 5 MG PO BID PRN CONSTIPATION Bisacodyl (Biscolax) 10 MG SUPP.RECT 10 MG VA DAILY CONSTIPATION Cholecalciferol (Vitamin D3) (Vitamin D3) 400 UNIT TABLET 800 IU PO DAILY SUPPLEMENT . Doxazosin Mesylate 8 MG TABLET 1 TAB PO QPM PROSTATE (Reported) Ferrous Sulfate 325 MG (65 MG IRON) TABLET 1 TAB PO QPM SUPPLEMENT (Reported) Furosemide 40 MG TABLET 1 TAB PO DAILY FLUID (Reported) Insulin Detemir (Levemir) 100 UNIT/ML VIAL 14 UNITS SQ DAILY DIABETES Insulin Lispro (Humalog) 100 UNIT/ML VIAL 0 SC SEE ADMIN CRITERIA DIABETES MELLITUS . Lactulose 10 GRAM/15 ML SOLUTION 30 ML PO TID LIVER CIRRHOSIS (Reported) Adjust the dose to have three bowel movements per day Magnesium Oxide (Magnesium) 400 MG CAPSULE 1 CAP PO BID SUPPLEMENT (Reported) Methadone HCl 10 MG/ML ORAL.CONC 60 MG PO DAILY MENTAL HEALTH (Reported) Mirabegron (Myrbetriq) 50 MG TAB.ER.24H 1 TAB PO DAILY BLADDER (Reported) Nicotine (Nicotine Patch) 14 MG/24 HOUR PATCH.TD24 14 MG TOP DAILY smoking cessation Spironolactone (Aldactone) 50 MG TABLET 1 TAB PO QPM FLUID (Reported) Tramadol HCl 50 MG TABLET 1 TAB PO Q8 PAIN CONTROL Trazodone HCl 100 MG TABLET 1 TAB PO QPM SLEEP (Reported) Triage Note: PT TO ED "MY WHOLE INSIDES FEEL LIKE THEY ARE RATTLING AWAY". DENIES N/V/D. STATES LAST BM YESTERDAY. Triage Nurses Notes Reviewed? yes HPI: 62-year-old male who is presenting with a chief complaint of constipation and lightheadedness. Patient states he has been having ongoing chronic constipation problems, was last admitted in 2017 for constipation as well. Patient currently takes morphine 30 mg twice daily and methadone 60 mg daily for chronic back pain secondary to cervical spine surgery. Patient states his last bowel movement was yesterday which consisted of hard stool, approximately golf ball size as described by patient. Patient states she has been using stool softeners approximately 4 times a day which have not improved any symptoms. Patient is also complaining of lightheadedness which occurs when he gets up too fast, his states he drinks about 2 bottles of water per day, is currently on a pured diet due to inability to chew solid food since his cervical spine surgery. Patient endorses flatus, denies abdominal pain, nausea, vomiting. Patient has been tolerating his diet. Denies fever, dizziness, confusion, blurred vision, chest pain, palpitation, shortness of breath, cough, abdominal pain. (Martin COX,Paula) Past History Travel History Traveled to [place] past 21 day No Medical History Any Pertinent Medical History? see below for history Neurological: restless leg syndrome EENT: NONE Cardiovascular: hypertension, PVD Respiratory: NONE Gastrointestinal: NONE Hepatic: cirrhosis, hepatitis C Renal: NONE Musculoskeletal: degen joint disease Psychiatric: chronic pain disorder, opioid dependence Endocrine: diabetes Blood Disorders: anemia Cancer(s): NONE ACCOUNT EXECUTIVE KEY ACCOUNTS/Reproductive: NONE History of MRSA: No History of VRE: No History of CDIFF: No Influenza Vaccine: 04/20/17 Surgical History Surgical History: hernia repair x2 lumbar discectomy cervical spinal fusion prostate laser surgery Psychosocial History Who do you live with Spouse Services at Home None What is your primary language Chinese Tobacco Use: Quit >30 days ago ETOH Use: denies use Illicit Drug Use: denies illicit drug use Family History Family History, If Any: MOTHER, ; Cause: Cancer. FH: cancer Peripheral vascular disease FATHER, ; Cause: Heart attack. Hx Contributory? No (Paula Salazar MD) Review of Systems Review of Systems Constitutional: Reports: see HPI. (Paula Salazar MD) Physical Exam Physical Exam General Appearance: well developed/nourished, no apparent distress Head: atraumatic, normal appearance Eyes: Bilateral: other (pinpoint pupils). Ears, Nose, Throat: normal pharynx Respiratory: normal breath sounds, lungs clear Cardiovascular: regular rate/rhythm, murmur (systolic 2/6 murmur) Gastrointestinal: normal bowel sounds, soft, non-tender, distention Rectal: normal exam, normal rectal tone, heme negative stool, no stool was present in rectal vault on JORDANA Extremities: normal inspection, normal capillary refill Neurologic/Psych: awake, alert, oriented x 3, development manager II-XII nml as tested Core Measures ACS in differential dx? No CVA/TIA Diagnosis: No Sepsis Present: No Sepsis Focused Exam Completed? No (Martin COX,Paula) Progress Differential Diagnoses I considered the following diagnoses in my evaluation of the patient: Constipation: Patient's presenting history, high opiate use and previous hospitalizations support a diagnosis of constant Colorectal malignancy: even though patient has not had bleeding/bloody stools patient does have documented history of 60+ pound weight loss. SBO: Less likely of a differential as patient is tolerating diet, has not been experiencing nausea or vomiting, is passing flatus Plan of Care: Orders Procedure Date/time Status URINALYSIS 04/10 1101 Complete TROPONIN LEVEL 04/10 110 Complete LIPASE 04/10 1101 Complete COMPREHENSIVE METABOLIC PANEL 04/10 110 Complete CBC WITHOUT DIFFERENTIAL 04/10 110 Complete Laboratory Tests 04/10/18 1153: Urine Color YEL, Urine Clarity CLEAR, Urine pH 7.0, Ur Specific [place] 1.010, Urine Protein NEG, Urine Ketones NEG, Urine Nitrite NEG, Urine Bilirubin NEG, Urine Urobilinogen 0.2, Ur Leukocyte Esterase NEG, Ur Microscopic SEDIMENT EXAMINED, Urine RBC 1-3, Ur Epithelial Cells RARE, Urine Hemoglobin SMALL H, Urine Glucose NEG 04/10/18 1120: Anion Gap 7, Estimated GFR 44 L, BUN/Creatinine Ratio 21.3, Glucose 198 H, Calcium 9.1, Total Bilirubin 0.5, AST 51, ALT 38, Alkaline Phosphatase 87, Troponin I < 0.01, Total Protein 8.2, Albumin 3.9, Globulin 4.3 H, Albumin/ Globulin Ratio 0.9 L, Lipase 189, CBC w Diff NO MAN DIFF REQ, RBC 3.91 L, MCV 81.2, MCH 27.4, MCHC 33.8, RDW 17.8 H, MPV 8.3, Gran % 82.7 H, Lymphocytes % 10.2 L, Monocytes % 5.1, Eosinophils % 1.7, Basophils % 0.3, Absolute Granulocytes 2.5, Absolute Lymphocytes 0.3 L, Absolute Monocytes 0.2, Absolute Eosinophils 0.1, Absolute Basophils 0 Initial ED EKG: normal axis (Martin CXO,Paula) Departure Departure Disposition: HOME OR SELF CARE Condition: Stable Clinical Impression Primary Impression: Constipation Qualifiers: Constipation type: drug induced constipation Qualified Code: K59.03 - Drug induced constipation Referrals: Patient Has No Primary Care Dr (PCP/Family) Departure Forms: Customer Survey General Discharge Information Prescriptions: Current Visit Scripts Bisacodyl (Ducodyl) 5 MG PO BID PRN CONSTIPATION #20 TAB Bisacodyl (Biscolax) 10 MG VA DAILY #3 TAB (Paula Salazar MD) Departure Additional Instructions: Please take medications as directed, please cut down on morphine and methadone if possible (these contribute to constipation). Increase your fluid intake. Increase activity. Consider a bottle of magnesium citrate for your constipation. Please follow-up with your PCP within 1 week. If symptoms worsen or do not resolve please come back to emergency department. Please note that there might be incidental findings in your evaluation that are unrelated to the current emergency department visit. Please notify your primary care doctor about this emergency department visit in order to obtain and review all of the testing performed so that these incidental findings can be monitored as needed. If you had an x-ray performed, please understand that some fractures or other findings may not be seen on the initial set of x-rays. If your symptoms persist you might need a repeat set of x-rays to check for such a fracture. If you had a laceration evaluated, please understand that foreign bodies such as glass or wood may not be visible to the naked eye or on plain x-rays. If the wound becomes red, swollen, increasingly more painful or if there is any drainage from the wound, please have it reevaluated by a physician for the possibility of a retained foreign body. If you're unable to follow up as outlined in the discharge instructions please return to the emergency department. Thank you for choosing the [facility] Emergency Department for your care. It was a pleasure to serve you today. Jeremías Brewer M.D. [facility] Resident Co-Sign Statement Statement: ED Attending supervision documentation- [x] I saw and evaluated the patient. I have also reviewed all the pertinent lab results and diagnostic results. I agree with the findings and the plan of care as documented in the Resident's documentation. [] I have reviewed the ED Record and agree with the Resident's documentation. [] Additions or exceptions (if any) to the Resident's note and plan are summarized below: [] (Daniella COX,Jeremías Yuen) Critical Care Note Critical Care Note Critical Care Time: non-applicable (Martin COX,Paula)
[2018-04-10 14:21] VITALS: BP 170/94
== END 2018-04-10 14:21 ==
LOC: ERH 10:55
PROVIDERS: Physician Assistant Medical
DX: K59.00 Constipation, unspecified (principal); G25.81 Restless legs syndrome; I10 Essential (primary) hypertension; K74.60 Unspecified cirrhosis of liver; B19.20 Unspecified viral hepatitis C without hepatic coma; E11.9 Type 2 diabetes mellitus without complications; Z79.84 Long term (current) use of oral hypoglycemic drugs
CPT/HCPCS: 74021; 81001